=== PATIENT | female | born 1955 | race Asian ===

== ENCOUNTER 2022-04-11 09:02 | Outpatient (REF) | payer MEDICARE, MEDICAID, SELFPAY ==
[2022-04-11 11:13] LABS: Hematocrit 43.2 % (37.0-47.0); Hemoglobin 14.6 g/dl (12.0-16.0); Mean Corpuscular HGB Conc 33.8 g/dl (31.0-35.0); Mean Corpuscular Hemoglobin 30.6 pg (27.0-33.0); Mean Corpuscular Volume 90.6 fL (80.0-98.0); Mean Platelet Volume 10.4 fL (9.4-12.3); Platelet Count 208 X10*3/uL (160-400); Red Blood Count 4.77 X10*6/uL (4.20-5.50); Red Cell Distribution Width 12.8 % (11.0-16.0); White Blood Count 6.6 X10*3/uL (4.8-10.8)
[2022-04-11 11:41] LABS: Alanine Aminotransferase 26 U/L (0-31); Albumin Level 4.3 g/dL (3.5-5.0); Alkaline Phosphatase 57 U/L (39-117); Anion Gap 16 (12-20); Aspartate Amino Transferase 25 U/L (5-31); Bilirubin Total 0.6 mg/dL (0.0-1.0); Blood Urea Nitrogen 14 mg/dL (9-16); Calcium 9.3 mg/dL (8.4-10.2); Carbon Dioxide 26 mmol/L (22-29); Chloride 104 mmol/L (96-108); Cholesterol 168 mg/dL; Estimated Glomerular Filt Rate > 60; Glucose Fasting 95 mg/dL (60-99); HDL Cholesterol 45 mg/dL; LDL Cholesterol Calculated 88 mg/dl; Potassium 4.7 mmol/L (3.3-5.1); Sodium 141 mmol/L (135-145); Total Protein 7.4 g/dL (6.5-8.0); Triglycerides 175 mg/dL
[2022-04-11 12:03] LABS: TSH reflex Free T4 3.63 uIU/mL (0.32-4.0)
== END 2022-04-11 09:03 | disposition home or self-care (01) ==
LOC: HO.WFDLDS 09:02
PROVIDERS: Visit Provider Hospitalist
DX: Z00.00 Encounter for general adult medical examination without abnormal findings (principal)
CPT/HCPCS: 36415; 80053; 80061; 84443; 85027

== ENCOUNTER 2022-11-19 09:51 | Outpatient (REF) | payer MEDICARE, MEDICAID, SELFPAY ==
[2022-11-19 12:39] LABS: TSH reflex Free T4 2.85 uIU/mL (0.32-4.0)
== END 2022-11-19 09:52 | disposition home or self-care (01) ==
LOC: HO.WFDLDS 09:51
PROVIDERS: Visit Provider Hospitalist
DX: E03.9 Hypothyroidism, unspecified (principal)
CPT/HCPCS: 36415; 84443

== ENCOUNTER 2023-02-21 11:15 | Outpatient (REF) | payer MEDICARE, MEDICAID, SELFPAY ==
--- NOTE | ~2023-02-21 | XR_ITS ---
EXAMINATION: XR HAND, LEFT XR KNEE, RIGHT XR KNEE, LEFT CLINICAL INFORMATION: Bilateral knee pain, trouble walking, pain left thumb. COMPARISON: None available. TECHNIQUE: 3 views of the left hand, 2 views of the right knee, 2 views of the left knee. FINDINGS: Right Knee: Trace joint effusion. Mild medial joint space narrowing. Small medial marginal and posterior patellar osteophytes. Left Knee: Trace joint effusion. Mild medial joint space narrowing. Small medial marginal and posterior patellar osteophytes. Left Hand: Moderate degenerative changes 1st carpometacarpal joint with joint space narrowing and hypertrophic change. XR/XR hand LT 2V IMPRESSION: 1. Mild degenerative changes right knee. 2. Mild degenerative changes left knee. 3. Moderate degenerative changes left 1st carpometacarpal joint. Recommend followup imaging in 10-14 days if fracture is suspected. Additional imaging with CT scan or MRI should be considered for better visualization as these modalities are much more sensitive for detection of fracture or other underlying pathology.
--- NOTE | ~2023-02-21 | XR_ITS ---
EXAMINATION: XR HAND, LEFT XR KNEE, RIGHT XR KNEE, LEFT CLINICAL INFORMATION: Bilateral knee pain, trouble walking, pain left thumb. COMPARISON: None available. TECHNIQUE: 3 views of the left hand, 2 views of the right knee, 2 views of the left knee. FINDINGS: Right Knee: Trace joint effusion. Mild medial joint space narrowing. Small medial marginal and posterior patellar osteophytes. Left Knee: Trace joint effusion. Mild medial joint space narrowing. Small medial marginal and posterior patellar osteophytes. Left Hand: Moderate degenerative changes 1st carpometacarpal joint with joint space narrowing and hypertrophic change. XR/XR knee RT 2V IMPRESSION: 1. Mild degenerative changes right knee. 2. Mild degenerative changes left knee. 3. Moderate degenerative changes left 1st carpometacarpal joint. Recommend followup imaging in 10-14 days if fracture is suspected. Additional imaging with CT scan or MRI should be considered for better visualization as these modalities are much more sensitive for detection of fracture or other underlying pathology.
--- NOTE | ~2023-02-21 | XR_ITS ---
EXAMINATION: XR HAND, LEFT XR KNEE, RIGHT XR KNEE, LEFT CLINICAL INFORMATION: Bilateral knee pain, trouble walking, pain left thumb. COMPARISON: None available. TECHNIQUE: 3 views of the left hand, 2 views of the right knee, 2 views of the left knee. FINDINGS: Right Knee: Trace joint effusion. Mild medial joint space narrowing. Small medial marginal and posterior patellar osteophytes. Left Knee: Trace joint effusion. Mild medial joint space narrowing. Small medial marginal and posterior patellar osteophytes. Left Hand: Moderate degenerative changes 1st carpometacarpal joint with joint space narrowing and hypertrophic change. XR/XR knee LT 2V IMPRESSION: 1. Mild degenerative changes right knee. 2. Mild degenerative changes left knee. 3. Moderate degenerative changes left 1st carpometacarpal joint. Recommend followup imaging in 10-14 days if fracture is suspected. Additional imaging with CT scan or MRI should be considered for better visualization as these modalities are much more sensitive for detection of fracture or other underlying pathology.
[2023-02-21 11:29] LABS: MANUAL DIFF FLAG NO
[2023-02-21 12:15] LABS: Basophils Percent Auto 0.7 % (0-2); Eosinophils Absolute Auto 0.2 X10*3/uL (0.0-0.4); Eosinophils Percent Auto 2.5 % (0-4); Hematocrit 42.1 % (37.0-47.0); Hemoglobin 14.2 g/dl (12.0-16.0); Imm Gran Abs Auto 0.02 X10*3/uL (0.00-0.03); Imm Gran Pct Auto 0.3 % (0.0-0.4); Lymphocytes Absolute Auto 2.5 X10*3/uL (1.2-4.9); Lymphocytes Percent Auto 42.2 % (20-40); Mean Corpuscular HGB Conc 33.7 g/dl (31.0-35.0); Mean Corpuscular Hemoglobin 30.9 pg (27.0-33.0); Mean Corpuscular Volume 91.5 fL (80.0-98.0); Mean Platelet Volume 10.6 fL (9.4-12.3); Monocytes Absolute Auto 0.5 X10*3/uL (0.1-1.2); Monocytes Percent Auto 7.7 % (2-11); Neutrophils Absolute Auto 2.8 x10*3/uL (2.0-8.3); Neutrophils Percent Auto 46.6 % (45-73); Platelet Count 194 X10*3/uL (160-400); Red Cell Distribution Width 12.8 % (11.0-16.0)
[2023-02-21 13:22] LABS: Alanine Aminotransferase 29 U/L (0-31); Alkaline Phosphatase 53 U/L (39-117); Anion Gap 10 (12-20); Aspartate Amino Transferase 23 U/L (5-31); Bilirubin Total 0.9 mg/dL (0.0-1.0); Blood Urea Nitrogen 17 mg/dL (9-16); Calcium 9.4 mg/dL (8.4-10.2); Carbon Dioxide 27 mmol/L (22-29); Chloride 106 mmol/L (96-108); Estimated Glomerular Filt Rate > 60; Glucose Fasting 92 mg/dL (60-99); Magnesium 1.9 mg/dL (1.6-2.6); Sodium 139 mmol/L (135-145); Total Protein 7.3 g/dL (6.5-8.0)
[2023-02-21 13:38] LABS: TSH reflex Free T4 1.48 uIU/mL (0.32-4.0)
== END 2023-02-21 11:16 | disposition home or self-care (01) ==
LOC: HO.XRAY 11:15
PROVIDERS: Visit Provider Nurse Practitioner Family
DX: E03.9 Hypothyroidism, unspecified (principal); G89.29 Other chronic pain; M25.561 Pain in right knee; M25.562 Pain in left knee; M79.642 Pain in left hand; E55.9 Vitamin D deficiency, unspecified; Z79.899 Other long term (current) drug therapy
CPT/HCPCS: 36415; 73120; 73560; 80053; 82306; 83735; 84443; 85025

== ENCOUNTER 2023-04-25 10:34 | Outpatient (AMB) | payer MEDICARE, MEDICAID, SELFPAY ==
[2023-04-25 10:42] VITALS: BP 128/70; PULSE 79; RESP 12; TEMP 36.8; O2SAT 98; BMI 32.1
--- NOTE | 2023-04-25 10:42 | A.OFFPC_ITS ---
Vital Signs 04/25/23 10:42 Height 5 ft 6 in Weight 199 lb BMI 32.1 BP 128/70 Blood Pressure Location Lt brachial Position Sitting Respiration 12 Pulse 79 Pulse Source Pulse Oximeter Temp 98.3 F Temp Source Temporal Artery Scan Pulse Oximetry (%) 98 Oxygen Delivery Method Room Air Intake Visit Reasons: CPE Intake Note: Patient's daughter states that her mother has been stating she wants to harm herself and states that she would rather be . Patient believes its due to patient uable to do thing for herself and needing assistance with day to day activities. Patient's daughter states that patients toe tips and feet are either ice cold or hotter than usual. Patient's daughter is worried that her mother is emotionally stuck and starting to give up on herself. Staff Development Coordinator Rn Required: Yes Staff Development Coordinator Rn Name: Agustin (daughter/caregiver) Accompanied by: Daughter Allergies amoxicillin Allergy (Severe, Verified 04/25/23 11:03) Anaphylaxis Medication List - Last Reconciled 04/25/23 by Sera Fox CNP acetaminophen ER 650 mg PO Q8H PRN atorvastatin 20 mg PO DAILY 90 days celecoxib (Celebrex) 100 mg PO BID PRN 30 days cholecalciferol (vitamin D3) 50 mcg PO DAILY cyanocobalamin (vitamin B-12) 100 mcg PO DAILY diclofenac sodium 1% (Arthritis Pain (diclofenac)) 2 grams topical BID escitalopram oxalate 20 mg PO DAILY famotidine 40 mg PO DAILY gabapentin 600 mg PO TID hydroxyzine pamoate 25 mg PO BEDTIME levothyroxine 125 mcg PO DAILY 3 months simethicone (Gas Relief (simethicone)) 125 mg PO TID PRN trazodone 100 mg PO BID 30 days Tobacco use date assessed: 10/31/22 Fall risk assessment: 2 + Falls in past year Last assessed Fall Risk: 04/25/23 Dental Screening Dental Screen Date: 04/25/23 Did you have a dental visit in the last 12 months?: Yes Did you have a dental problem in the last 6 months where you did not have access to dental care?: No Was dental information given to patient?: Patient has dentist HPI HPI Comments History of Present Illness Details 68-year-old Slovenian Speaking female, accompanied by her daughter, presents for complete physical exam. She reports generalized pain to her spine, left hand, in bilateral lower extremity. Recent x-ray of the knees and left hand revealed degenerative changes. She had a positive response to the pHQ-9 question regarding ? Thoughts that you would be better off or of hurting yourself in some way. She declines to elaborate on the reasons she feels this way. She notes that she sometimes refused to take her medications or eat so that she does not live much longer. Her daughter states that the patient has an appointment to establish with a psychiatrist in June 2023. She is not followed by a therapist and declines a referral. She arrives and left in a wheelchair. [facility] Medical History Depression Surgical History History of thyroidectomy Social History Household Members Other:: daughter Housing: House Alcohol intake: never Patient Tobacco Use Status: Never used Tobacco e-Cigarette/Vaping Use: Never Used Second Hand Smoke Exposure: No service: No Current occupational status: disabled Current occupational exposures/hazards: No Cognitive needs: Yes (cane, wheelchair) Hearing needs: No Vision needs: No (glasses) Questionnaire PHQ-9 Over the last 2 weeks, how often have you been bothered by any of the following problems? 1. Little interest or pleasure in doing things: several days 2. Feeling down, depressed, or hopeless: nearly every day 3. Trouble falling or staying asleep, or sleeping too much: not at all 4. Feeling tired or having little energy: nearly every day 5. Poor appetite or overeating: nearly every day 6. Feeling bad about yourself - or that you are a failure or have let yourself or your family down: nearly every day 7. Trouble concentrating on things, such as reading the newspaper or watching television: several days 8. Moving or speaking so slowly that other people could have noticed. Or the opposite - being so fidgety or restless that you have been moving around a lot more than usual: several days 9. Thoughts that you would be better off or of hurting yourself in some way: nearly every day Total score: 18 Depression Screening Interpretation: Positive Source: Developed by Jolynn GarciaW. Gabino, Ludwin Moreno and colleagues, with an educational hima from [employer]. Thrive Questionnaire Date Thrive assessed: 10/31/22 FORREST-7 AMB Questionnaire FORREST-7 Date FORREST - 7 assessed: 04/25/23 Feeling nervous, anxious, or on edge: 3 = Nearly every day Not being able to stop or control worryin = Nearly every day Worrying too much about different things: 3 = Nearly every day Trouble relaxin = Not at all Being so restless that it is hard to sit still: 3 = Nearly every day Becoming easily annoyed or irritable: 0 = Not at all Feeling afraid as if something awful might happen: 3 = Nearly every day Total FORREST-7 score (0-4 normal; 5-9 mild; 10-14 moderate; 15-21 severe): 15 Source: Developed by Drs. Jhon Abreu, Jolynn Lloyd, Ludwin Moreno and colleagues, with an educational hima from [employer]. Review of Systems Const Details: Denies chills, Denies fatigue, Denies fever(s), Denies headache(s) and Denies weakness HEENT Denies change in vision, Denies dizziness, Denies headache(s), Denies hearing loss, Denies nasal congestion, Denies sinus pain, Denies sinus pressure and Denies sore throat Card Denies chest pain, Denies lightheadedness, Denies dyspnea and Denies other (palpitations) Resp Denies cough, Denies dyspnea and Denies wheezing GI Denies abdominal pain, Denies melena, Denies hematochezia, Denies change in bowel habits, Denies dyspepsia and Denies nausea Denies hematuria and Denies dysuria Musc Reports abnormal gait, Reports myalgias, Reports arthralgias, Denies numbness and Denies tingling Skin/Breast Denies rash, Denies unusual bruising and Denies wounds Neuro Denies abnormal gait, Denies dizziness, Denies headache(s), Denies memory loss, Denies numbness, Denies Sensory deficit (Neuro), Denies tingling and Denies weakness Psych Reports anxiety, Reports depression and Denies memory loss Endo Reports cold intolerance, Denies fatigue, Denies heat intolerance, Denies polydipsia and Denies polyuria David/Lymph Denies easy bleeding and Denies easy bruising Aller/Immun Denies wheezing Physical exam (Primary Care) Vital Signs: Last Vital Signs Temp 98.3 F 04/25/23 10:42 Pulse 79 04/25/23 10:42 Resp 12 04/25/23 10:42 BP 128/70 04/25/23 10:42 Pulse Ox 98 04/25/23 10:42 Oxygen Delivery Method Room Air 04/25/23 10:42 BMI result Body Mass Index 32.1 Tobacco/Smoking Status: Tobacco use Status Tobacco use date assessed 10/31/22 04/25/23 10:55 Patient Tobacco Use Status Never used Tobacco 04/25/23 10:55 e-Cigarette/Vaping Use Never Used 04/25/23 10:55 PHQ-9: PHQ-9 Score PHQ-9: Total score 18 04/25/23 11:40 Depression Screening Interpretation: Positive Thrive Assessment: Date of Thrive Assessment Date Thrive assessed 10/31/22 04/25/23 10:55 Const Other: General: no acute distress, well developed, alert and awake Nutritional Appearance: well nourished Orientation/consciousness: patient oriented x3 HENMT Head: Yes normocephalic and Yes atraumatic Ears: hearing grossly normal bilaterally and TM's normal bilaterally General nose exam: Normal external nose present and Normal nares present Mouth: Normal oral and palatal mucosa present and moist mucous membranes Teeth and gingiva: dentition normal Throat: Yes oropharynx normal Eyes Pupils: Equal, round and reactive pupils present and Pupil accommodation reflex normal EOM: EOMs intact bilaterally Neck Neck: Yes normal visual inspection, Yes no lymphadenopathy and Yes trachea midline Thyroid: Thyroid normal Carotids: no bruits Lymphatic: no lymphadenopathy noted Chest Chest palpation & inspection: normal inspection of the chest Resp Effort & Inspection: normal respiratory effort Auscultation: clear to auscultation bilaterally Cardio Rate: regular rate Rhythm: regular rhythm Heart sounds: S1 normal heart sound present, S2 normal heart sound present, no gallops, no murmurs and no rubs Bruits: no abdominal aortic bruits and no carotid bruits GI Palpation (GI): No Abdominal aortic bruit present, Soft to palpation, nontender, No hepatosplenomegaly present and No Rebound tenderness present Auscultation: normal bowel sounds General: Yes no CVA tenderness Back/Spine/Pelvis Back: no CVA tenderness Cervical Spine: cervical ROM normal and Cervical spine tenderness Thoracic/Lumbar Spine: thoraco-lumbar ROM normal, No pain with thoraco-lumbar ROM, and thoracic spinal and lumbar spinal tenderness Skin General: warm and dry. Normal skin color. Normal skin turgor Lesions: no lesions Rashes: no rashes Trauma: no lacerations or abrasions Wounds: no wounds Nails: normal Neuro General: patient oriented x3, unsteady gait and CN's II-XI intact bilaterally Cranial nerves: Yes Equal, round and reactive pupils present Cognition (Neuro): normal cognition Gait exam (Neuro): Unsteady gait present Motor exam (neuro): 3/5 motor strength present throughout Sensory Exam: No Sensory deficit (Neuro) Deep tendon reflexes (DTR's): Right patellar reflex intensity grade: 2+ and Left patellar reflex intensity grade: 2+ Extrem General: Yes normal to inspection, No edema and No calf tenderness Psych Appearance: grossly normal Affect: normal affect Attitude: cooperative Thought process: Normal thought process present Assessment and Plan Assessment & Plan (1) Physical exam, annual: Code(s): Z00.00 - Encounter for general adult medical examination without abnormal findings Plan: Significant physical restrictions limitations noted Gait is significantly unsteady, unable to ambulate without 2 person assistance Previous lab results reviewed; unremarkable. Will check lipids Advised to fast for at least 10-12 hours and get blood work done before next visit Follow-up in 4 weeks Verbalized understanding and agreed with treatment plan. (2) Anxiety and depression: Code(s): F41.9 - Anxiety disorder, unspecified; F32.A - Depression, unspecified Plan: PHQ-9 and FORREST-7 scores revealed moderate chills severe depression and severe anxiety respectively Escitalopram is discontinued Duloxetine ordered. Take as prescribed Continue to take hydroxyzine and trazodone as prescribed Declined talked therapy Advised to establish with psychiatrist as planned Referred to the nurse navigator to assist with coordinating care Follow-up in 4 weeks or return sooner with worsening or new symptoms Verbalized understanding and agreed with treatment plan. (3) Chronic generalized pain: Code(s): R52 - Pain, unspecified; G89.29 - Other chronic pain Plan: Reports generalized pain to her spine, left hand, in bilateral lower extremity. Recent x-ray of the knees and left hand revealed degenerative changes Tylenol, Celebrex, gabapentin, and diclofenac cream as prescribed Warm/cool compresses encouraged Referred to home care for mood assessment, med administration, and physical therapy Follow-up with worsening or new symptoms Verbalized understanding and agreed with treatment plan. Orders: Orders Lipid Panel Today E78.1 - Pure hyperglyceridemia Referrals [facility] Referral F32.A - Depression, unspecified, F41.9 - Anxiety disorder, unspecified, G89.29 - Other chronic pain, R52 - Pain, unspecified Nurse Navigator Referral F32.A - Depression, unspecified, F41.9 - Anxiety disorder, unspecified, G89.29 - Other chronic pain, R52 - Pain, unspecified Medications: New duloxetine 20 mg PO BID 30 days 60 caps 3RF Changed From cholecalciferol (vitamin D3) 50 mcg PO DAILY To cholecalciferol (vitamin D3) 50 mcg PO DAILY 90 days 90 caps 1RF Discontinued escitalopram oxalate Discontinued Reason: Doctor's Order 20 mg PO DAILY 90 tabs 1RF F34.1 - Dysthymic disorder Coding Level of Care Code Est Pt Prev Care >65y(40554) Diagnoses Physical exam, annual Z00.00 Anxiety and depression F41.9; F32.A Chronic generalized pain R52; G89.29
== END 2023-04-25 11:44 | disposition home or self-care (01) ==
PROVIDERS: PCP Hospitalist; Visit Provider Nurse Practitioner Family
DX: Z00.00 Encounter for general adult medical examination without abnormal findings (principal); F41.9 Anxiety disorder, unspecified; F32.A Depression, unspecified; R52 Pain, unspecified; G89.29 Other chronic pain
CPT/HCPCS: 99397

== ENCOUNTER 2023-07-21 11:05 | Outpatient (AMB) | payer MEDICARE, MEDICAID, SELFPAY ==
--- NOTE | 2023-07-21 11:14 | MHC.PC.OV ---
Vital Signs 07/21/23 11:15 Height 5 ft 6 in Weight 215 lb BMI 34.7 BP 132/78 Blood Pressure Location Rt brachial Position Sitting Respiration 13 Pulse 68 Pulse Source Pulse Oximeter Pulse Oximetry (%) 97 Oxygen Delivery Method Room Air Intake Visit Reasons: Transfer of care - anxiety/depression Intake Note: Patient is here for a transfer of care from [facility] and a follow up for anxiety and depression. Patient's daughter is concerned about for her weight gain. Patient needs a refill on Simethicone 125mg TID, acetaminophen 650mg Q8H, and Vitamin B12 100mcg QD. Utilization Management Nurse Required: No Accompanied by: Daughter Allergies amoxicillin Allergy (Severe, Verified 07/21/23 11:37) Anaphylaxis Medication List - Last Reconciled 07/21/23 by Sera Fox CNP acetaminophen ER 650 mg PO Q8H PRN atorvastatin 20 mg PO DAILY 90 days celecoxib (Celebrex) 100 mg PO BID PRN 30 days cholecalciferol (vitamin D3) 50 mcg PO DAILY 90 days cyanocobalamin (vitamin B-12) 100 mcg PO DAILY diclofenac sodium 1% (Arthritis Pain (diclofenac)) 2 grams topical BID duloxetine 20 mg PO BID 30 days famotidine 40 mg PO DAILY gabapentin 600 mg PO TID hydroxyzine pamoate 25 mg PO BEDTIME levothyroxine 125 mcg PO DAILY 3 months simethicone (Gas Relief (simethicone)) 125 mg PO TID PRN trazodone 100 mg PO BID 30 days Tobacco use date assessed: 07/21/23 Fall risk assessment: No Falls in past year Last assessed Fall Risk: 07/21/23 HPI HPI Comments History of Present Illness Details 68-year-old Vietnamese Speaking female, accompanied by her daughter, presents for transfer of care Her former PCP is [facility] was is no longer with the practice She has past medical history significant for hyperlipidemia, hypothyroidism, chronic generalized pain, obesity, vitamin-D deficiency, anxiety, and depression. She admits to taking her medications as prescribed without adverse reactions She notes that she is followed by a psychiatrist every 3 months. Her next appointment is in September, She notes that the patient's mood have improved since her sons are currently visiting from [place] She was referred to home care for mood assessment, medication administration, and physical therapy. However, her daughter notes that she he is fully capable of providing care for her mother and has been doing so. According to her daughter, the patient declined home care services. Her daughter is concerned about the patient's weight gain. She gained 16 lb since the last visit. She notes that the patient has been eating healthy. Her daughter attributes the patient's weight gain to sedentary lifestyle. She notes that the patietn ambulates with a cane and walker for short distances and mostly sits in a wheelchair which she uses for long distances. The patient's daughter requests mounjaro for weight loss for the patient which she notes she will pay out of pocket if the patient's health plan does not cover the medication. Her daughter states that several weight loss regimen, including diet and physical therapy has failed. She denies history of pancreatitis or a personal or family history of medullary thyroid cancer or multiple endorcine neoplasia She requests refill of Tylenol which she notes is more effective in managing the patient's pain than Celebrex Patient was escorted in a wheelchair, by her daughter, in and out of the exam room [facility] Medical History Depression Surgical History History of thyroidectomy Social History Household Members Other:: daughter Housing: House Alcohol intake: never Patient Tobacco Use Status: Never used Tobacco e-Cigarette/Vaping Use: Never Used Second Hand Smoke Exposure: No service: No Current occupational status: disabled Current occupational exposures/hazards: No Cognitive needs: Yes (cane, wheelchair) Hearing needs: No Vision needs: No (glasses) Questionnaire PHQ-9 Over the last 2 weeks, how often have you been bothered by any of the following problems? 1. Little interest or pleasure in doing things: not at all 2. Feeling down, depressed, or hopeless: more than half the days 3. Trouble falling or staying asleep, or sleeping too much: not at all 4. Feeling tired or having little energy: nearly every day 5. Poor appetite or overeating: not at all 6. Feeling bad about yourself - or that you are a failure or have let yourself or your family down: nearly every day 7. Trouble concentrating on things, such as reading the newspaper or watching television: nearly every day 8. Moving or speaking so slowly that other people could have noticed. Or the opposite - being so fidgety or restless that you have been moving around a lot more than usual: several days 9. Thoughts that you would be better off or of hurting yourself in some way: not at all Total score: 12 Depression Screening Interpretation: Positive Depression Screening Follow-up: Existing condition and In treatment Depression Screening Done: Yes 28491 - PHQ-9 Billing: Yes Source: Developed by Drs. Jhon Abreu, Jolynn Lloyd, Ludwin Moreno and colleagues, with an educational hima from [employer]. Thrive Questionnaire Date Thrive assessed: 10/31/22 FORREST-7 AMB Questionnaire FORREST-7 Date FORREST - 7 assessed: 07/21/23 Feeling nervous, anxious, or on edge: 1 = Several days Not being able to stop or control worryin = Nearly every day Worrying too much about different things: 1 = Several days Trouble relaxin = Nearly every day Being so restless that it is hard to sit still: 1 = Several days Becoming easily annoyed or irritable: 1 = Several days Feeling afraid as if something awful might happen: 3 = Nearly every day Total FORREST-7 score (0-4 normal; 5-9 mild; 10-14 moderate; 15-21 severe): 13 Source: Developed by Drs. Jhon Abreu, Jolynn Lloyd, Ludwin Moreno and colleagues, with an educational hima from [employer]. FORREST-7 Assessment Billing FORREST-7 Assessment Tool: FORREST-7 Assessment [id number] Review of Systems Const Details: Const Denies chills, Denies fatigue, Denies fever(s), Denies headache(s) and Denies weakness ENT Denies dizziness and Denies headache(s) Card Denies chest pain, Denies lightheadedness, Denies dyspnea and Denies other (Palpitations) Resp Denies cough, Denies dyspnea, Denies wheezing and Denies other ( shortness of breath) GI Denies abdominal pain, Denies melena, Denies hematochezia, Denies change in bowel habits, Denies dyspepsia and Denies nausea Denies hematuria and Denies dysuria Musc Denies abnormal gait, Denies myalgias, Denies arthralgias, Denies numbness and Denies tingling Skin/Breast Denies rash, Denies unusual bruising and Denies wounds Neuro Denies abnormal gait, Denies dizziness, Denies headache(s), Denies memory loss, Denies numbness, Denies Sensory deficit (Neuro), Denies tingling and Denies weakness Psych Reports anxiety, Reports depression, Denies memory loss Endo Denies cold intolerance, Denies fatigue, Denies heat intolerance, Denies polydipsia and Denies polyuria Aller/Immun Denies wheezing Physical exam (Primary Care) Vital Signs: Last Vital Signs Pulse 68 07/21/23 11:15 Resp 13 07/21/23 11:15 BP 132/78 07/21/23 11:15 Pulse Ox 97 07/21/23 11:15 Oxygen Delivery Method Room Air 07/21/23 11:15 BMI result Body Mass Index 34.7 Tobacco/Smoking Status: Tobacco use Status Tobacco use date assessed 07/21/23 07/21/23 11:29 Patient Tobacco Use Status Never used Tobacco 07/21/23 11:29 e-Cigarette/Vaping Use Never Used 07/21/23 11:29 PHQ-9: PHQ-9 Score PHQ-9: Total score 15 07/21/23 11:29 Depression Screening Interpretation: Positive Depression Screening Follow-up: Existing condition and In treatment Thrive Assessment: Date of Thrive Assessment Date Thrive assessed 10/31/22 07/21/23 11:29 Const Other: General: no acute distress and well developed Nutritional Appearance: well nourished Orientation/consciousness: patient oriented x3 HENMT Head: Yes normocephalic and Yes atraumatic Eyes General: appearance normal, both eyes and all related structures Pupils: Equal, round and reactive pupils present EOM: EOMs intact bilaterally Resp Effort & Inspection: normal respiratory effort Auscultation: clear to auscultation bilaterally Cardio Rate: regular rate Rhythm: regular rhythm Heart sounds: S1 normal heart sound present, S2 normal heart sound present, no gallops, no murmurs and no rubs GI Palpation (GI): No Abdominal aortic bruit present, Soft to palpation, nontender, No hepatosplenomegaly present and No Rebound tenderness present Auscultation: normal bowel sounds General: Yes no CVA tenderness Back/Spine/Pelvis Back: no CVA tenderness Cervical Spine: cervical ROM normal and No Cervical spine tenderness Thoracic/Lumbar Spine: thoraco-lumbar ROM normal, No pain with thoraco-lumbar ROM, No thoracic spinal tenderness and No lumbar spinal tenderness Extrem General: Yes normal to inspection, No edema and No calf tenderness Skin General: warm and dry. Normal skin color. Normal skin turgor Neuro General: patient oriented x3 and no focal neuro deficit Cranial nerves: Yes Equal, round and reactive pupils present Cognition (Neuro): normal cognition Gait exam (Neuro): wheelchair Sensory Exam: No Sensory deficit (Neuro) Psych Appearance: grossly normal Affect: normal affect Attitude: cooperative Thought process: Normal thought process present Assessment and Plan Assessment & Plan (1) Anxiety and depression: Code(s): F41.9 - Anxiety disorder, unspecified; F32.A - Depression, unspecified Plan: Reports improved mood since she is spending time with her son who or visiting PHQ-9 and FORREST-7 scores revealed moderate depression and anxiety Continue with current treatment regimen Encouraged to continue to spend more time with her family She may be able to expand her activity more if she loses some weight. Healthy diet encouraged. Mounjaro as prescribed Follow-up with psychiatrist as planned Will continue to monitor Verbalized understanding and agreed with treatment plan. (2) High triglycerides: Code(s): E78.1 - Pure hyperglyceridemia Plan: Triglycerides level was slightly elevated a year ago, 175. Total cholesterol, LDL, and HDL levels were normal Lipid panel was ordered, however, the patient has not gotten blood work done. Advised to get fasting blood work done before her next visit Continue to take atorvastatin as prescribed Advised to limit foods high in saturated fat and avoid foods high in trans fat Follow-up in 1 month Verbalized understanding and agreed with treatment plan. (3) Obesity: Code(s): E66.9 - Obesity, unspecified Plan: The patient's daughter's concerned about the patient's recent weight gain She gained 16 lb since her last visit 3 months ago She currently weighs 215 lb, BMI is 34.7 Her daughter notes that several with management modalities has failed; she requests mounjaro for weight management and would cover cost if health plan does not cover Monitor ordered. Take as prescribed Healthy diet encouraged Follow-up in 1 month or return sooner with symptoms, concerns, or adverse reaction of the medication Verbalized understanding and agreed with treatment plan. Medications: New tirzepatide (Mounjaro) 2.5 mg (0.5 mL) subcut QWEEK 2 mL 0RF 4 weeks acetaminophen ER 650 mg PO Q8H PRN 60 tabs 3RF pain Changed From simethicone (Gas Relief (simethicone)) 125 mg PO TID PRN 90 tabs 3RF abdominal distention R14.1 - Gas pain To simethicone (Gas Relief (simethicone)) 125 mg PO TID 90 days PRN 90 tabs 1RF abdominal distention R14.1 - Gas pain Discontinued celecoxib (Celebrex) Discontinued Reason: Patient no longer taking 100 mg PO BID PRN 60 caps 2RF pain 30 days Coding Level of Care Code Est Pt Level 4 (74445) Diagnoses Anxiety and depression F41.9; F32.A High triglycerides E78.1 Obesity E66.9 Additional Codes FORREST-7 Assessment Billing - FORREST-7 Assessment Tool: FORREST-7 Assessment [id number] ([id number])
[2023-07-21 11:15] VITALS: BP 132/78; PULSE 68; RESP 13; O2SAT 97; BMI 34.7
== END 2023-07-21 12:23 | disposition home or self-care (01) ==
PROVIDERS: PCP Hospitalist; Visit Provider Nurse Practitioner Family
DX: F41.9 Anxiety disorder, unspecified (principal); F32.A Depression, unspecified; E78.1 Pure hyperglyceridemia; E66.9 Obesity, unspecified; Z68.34 Body mass index [BMI] 34.0-34.9, adult
CPT/HCPCS: 96127; 99214

== ENCOUNTER 2023-08-26 10:49 | Outpatient (AMB) | payer MEDICARE, MEDICAID, SELFPAY ==
--- NOTE | 2023-08-26 10:51 | MHC.PC.OV ---
Vital Signs 08/26/23 10:52 Height 5 ft 6 in Weight 225 lb BMI 36.3 BP 130/70 Blood Pressure Location Lt brachial Position Sitting Respiration 16 Pulse 72 Pulse Source Pulse Oximeter Temp 98.3 F Temp Source Oral Pulse Oximetry (%) 94 Intake Visit Reasons: hyper triglyceridemia, weight management Intake Note: Patient is here for hypertriglyceridemia and weight management. Patient's daghter stated that the pharmacy nver got the prescriprtion for Mounjaro. Allergies amoxicillin Allergy (Severe, Verified 08/26/23 11:17) Anaphylaxis Medication List - Last Reconciled 08/26/23 by Sera Fox CNP acetaminophen ER 650 mg PO Q8H PRN atorvastatin 20 mg PO DAILY 90 days cholecalciferol (vitamin D3) 50 mcg PO DAILY 90 days cyanocobalamin (vitamin B-12) 100 mcg PO DAILY diclofenac sodium 1% (Arthritis Pain (diclofenac)) 2 grams topical BID duloxetine 20 mg PO BID 30 days famotidine 40 mg PO DAILY gabapentin 600 mg PO TID hydroxyzine pamoate 25 mg PO BEDTIME levothyroxine 125 mcg PO DAILY 3 months simethicone (Gas Relief (simethicone)) 125 mg PO TID PRN 90 days tirzepatide (Mounjaro) 2.5 mg (0.5 mL) subcut QWEEK 4 weeks trazodone 100 mg PO BID 30 days Tobacco use date assessed: 08/26/23 Fall risk assessment: No Falls in past year Last assessed Fall Risk: 08/26/23 Dental Screening Dental Screen Date: 08/26/23 Did you have a dental visit in the last 12 months?: Yes Did you have a dental problem in the last 6 months where you did not have access to dental care?: No Was dental information given to patient?: Patient has dentist HPI HPI Comments History of Present Illness Details 68-year-old Georgian Speaking female, accompanied by her daughter, presents for hyperlipidemia and weight management follow-up She admits to taking her medications as prescribed Her last office visit was on 07/21/2023. She reported weight gain. It was noted that she gained 16 lb within 3 months Per the patient's daughter, she went to the pharmacy 3 times and was told monunjaro was not available. She notes that the patient has been making healthy dietary choices including low carbs, fruits, and vegetables Her daughter notes that the patient is currently discharged from her psychiatrist because she is Georgian speaking only. She is in the process of connecting her mother with an Georgian speaking psychiatrist. She is trying to schedule an appointment before the end of this week Last mammogram was within the past 2 years at [facility]: Normal She notes she has never had colonoscopy. She declines colonoscopy She states that her last pap smear test was withing the past 2 years: normal She notes that her last dexa scan with withing the past 3 years: normal She is up-to-date on her PNA vaccines [facility] Medical History Depression Surgical History History of thyroidectomy Social History Household Members Other:: daughter Housing: House Alcohol intake: never Patient Tobacco Use Status: Never used Tobacco e-Cigarette/Vaping Use: Never Used Second Hand Smoke Exposure: No service: No Current occupational status: disabled Current occupational exposures/hazards: No Cognitive needs: Yes (cane, wheelchair) Hearing needs: No Vision needs: No (glasses) Questionnaire Thrive Questionnaire Date Thrive assessed: 10/31/22 FORREST-7 AMB Questionnaire FORREST-7 Date FORREST - 7 assessed: 07/21/23 Source: Developed by Drs. Jhon Abreu, Jolynn Lloyd, Ludwin Moreno and colleagues, with an educational hima from [employer]. Review of Systems Const Details: Const Denies chills, Denies fatigue, Denies fever(s), Denies headache(s) and Denies weakness ENT Denies dizziness and Denies headache(s) Card Denies chest pain, Denies lightheadedness, Denies dyspnea and Denies other (Palpitations) Resp Denies cough, Denies dyspnea, Denies wheezing and Denies other ( shortness of breath) GI Denies abdominal pain, Denies melena, Denies hematochezia, Denies change in bowel habits, Denies dyspepsia and Denies nausea Denies hematuria and Denies dysuria Musc Denies abnormal gait, Denies myalgias, Denies arthralgias, Denies numbness and Denies tingling Skin/Breast Denies rash, Denies unusual bruising and Denies wounds Neuro Denies abnormal gait, Denies dizziness, Denies headache(s), Denies memory loss, Denies numbness, Denies Sensory deficit (Neuro), Denies tingling and Denies weakness Psych Denies anxiety, Denies depression, Denies memory loss Endo Denies cold intolerance, Denies fatigue, Denies heat intolerance, Denies polydipsia and Denies polyuria Aller/Immun Denies wheezing Physical exam (Primary Care) BMI result Body Mass Index 36.3 Tobacco/Smoking Status: Tobacco use Status Tobacco use date assessed 07/21/23 08/26/23 11:06 Patient Tobacco Use Status Never used Tobacco 08/26/23 11:06 e-Cigarette/Vaping Use Never Used 08/26/23 11:06 Thrive Assessment: Date of Thrive Assessment Date Thrive assessed 10/31/22 08/26/23 11:06 Const Other: Const Other: General: no acute distress and well developed Nutritional Appearance: well nourished Orientation/consciousness: patient oriented x3 HENMT Head: Yes normocephalic and Yes atraumatic Eyes General: appearance normal, both eyes and all related structures Pupils: Equal, round and reactive pupils present EOM: EOMs intact bilaterally Resp Effort & Inspection: normal respiratory effort Auscultation: clear to auscultation bilaterally Cardio Rate: regular rate Rhythm: regular rhythm Heart sounds: S1 normal heart sound present, S2 normal heart sound present, no gallops, no murmurs and no rubs GI Palpation (GI): No Abdominal aortic bruit present, Soft to palpation, nontender, No hepatosplenomegaly present and No Rebound tenderness present Auscultation: normal bowel sounds General: Yes no CVA tenderness Back/Spine/Pelvis Back: no CVA tenderness Cervical Spine: cervical ROM normal and No Cervical spine tenderness Thoracic/Lumbar Spine: thoraco-lumbar ROM normal, No pain with thoraco-lumbar ROM, No thoracic spinal tenderness and No lumbar spinal tenderness Extrem General: Yes normal to inspection, No edema and No calf tenderness Skin General: warm and dry. Normal skin color. Normal skin turgor Neuro General: patient oriented x3 and no focal neuro deficit Cranial nerves: Yes Equal, round and reactive pupils present Cognition (Neuro): normal cognition Gait exam (Neuro): wheelchair Sensory Exam: No Sensory deficit (Neuro) Psych Appearance: grossly normal Affect: normal affect Attitude: cooperative Thought process: Normal thought process present Assessment and Plan Assessment & Plan (1) BMI 36.0-36.9,adult: Code(s): Z68.36 - Body mass index [BMI] 36.0-36.9, adult Plan: She gained an additional 10 lb since her last visit. Therefore, she has gained 26 lb in the past 4 months Her daughter notes that she was told that the Mounjaro prescription was not available at the pharmacy. However, the nurse called the pharmacy and was notified the prescription was ready but never picked up. Patient informed that the medication is available at the pharmacy for warehouse order picker. She notes she will warehouse order picker medication today. She is advised to administer the medication as prescribed. Referred to nutrition/dietitian Follow-up in 1 month or return sooner with symptoms or concerns Verbalized understanding and agreed with treatment plan Interpretation by the patient's daughter per patient's preference (2) High triglycerides: Code(s): E78.1 - Pure hyperglyceridemia Plan: Her triglycerides level was elevated in April, She had lipid panel blood work done earlier today Will review lab results and make changes as needed Advised to limit foods high in saturated fat and avoid foods high trans fat Verbalized understanding and agreed with treatment plan (3) Breast cancer screening by mammogram: Code(s): Z12.31 - Encounter for screening mammogram for malignant neoplasm of breast Plan: Last mammogram was within the past 2 years at [facility]: Normal Mammogram ordered (4) Colon cancer screening: Code(s): Z12.11 - Encounter for screening for malignant neoplasm of colon Plan: She notes she has never had colonoscopy She declines colonoscopy (5) Age-related osteoporosis without current pathological fracture: Code(s): M81.0 - Age-related osteoporosis without current pathological fracture Plan: She notes that her last dexa scan with withing the past 3 years: normal DEXA scan ordered Orders: Orders XR DEXA axial skeleton Today M81.0 - Age-related osteoporosis without current pathological fracture MM screening mammo BI Today Z12.31 - Encounter for screening mammogram for malignant neoplasm of breast Referrals Nutrition/Dietitian Referral Z68.36 - Body mass index [BMI] 36.0-36.9, adult Coding Level of Care Code Est Pt Level 4 (27011) Diagnoses BMI 36.0-36.9,adult Z68.36 High triglycerides E78.1 Breast cancer screening by mammogram Z12.31 Colon cancer screening Z12.11 Age-related osteoporosis without current pathological fracture M81.0
[2023-08-26 10:52] VITALS: BP 130/70; PULSE 72; RESP 16; TEMP 36.8; O2SAT 94; BMI 36.3
== END 2023-08-26 11:48 | disposition home or self-care (01) ==
PROVIDERS: PCP Family Medicine; Visit Provider Nurse Practitioner Family
DX: Z68.36 Body mass index [BMI] 36.0-36.9, adult (principal); E78.1 Pure hyperglyceridemia; Z12.31 Encounter for screening mammogram for malignant neoplasm of breast; Z12.11 Encounter for screening for malignant neoplasm of colon; M81.0 Age-related osteoporosis without current pathological fracture
CPT/HCPCS: 99214

== ENCOUNTER 2023-08-26 10:55 | Outpatient (REF) | payer MEDICARE, MEDICAID, SELFPAY ==
[2023-08-26 14:47] LABS: Cholesterol 137 mg/dL (<200); HDL Cholesterol 39 mg/dL (>40); LDL Cholesterol Calculated 65 mg/dL (<100); Triglycerides 168 mg/dL (<150)
[2023-08-26 15:01] LABS: TSH reflex Free T4 2.15 uIU/mL (0.32-4.0)
== END 2023-08-26 10:56 | disposition home or self-care (01) ==
LOC: HO.WFDLDS 10:55
PROVIDERS: Visit Provider Nurse Practitioner Family
DX: E03.9 Hypothyroidism, unspecified (principal); E78.1 Pure hyperglyceridemia
CPT/HCPCS: 36415; 80061; 84443

== ENCOUNTER 2023-11-24 16:35 | Outpatient (AMB) | payer MEDICARE, MEDICAID, SELFPAY ==
[2023-11-24 16:36] VITALS: BP 118/72; PULSE 75; RESP 13; TEMP 36.1; O2SAT 98; BMI 32.3
--- NOTE | 2023-11-24 16:36 | MHC.PC.OV ---
Vital Signs 11/24/23 16:36 Height 5 ft 6 in Weight 200 lb BMI 32.3 BP 118/72 Blood Pressure Location Rt brachial Position Sitting Respiration 13 Pulse 75 Pulse Source Pulse Oximeter Temp 97 F Temp Source Temporal Artery Scan Pulse Oximetry (%) 98 Oxygen Delivery Method Room Air Intake Visit Reasons: follow up wt mgmt anxiety Bi Consultant Required: Yes Bi Consultant Name: Daughter Accompanied by: Daughter Allergies amoxicillin Allergy (Severe, Verified 11/24/23 16:47) Anaphylaxis Medication List - Last Reconciled 11/24/23 by Sera Fox CNP acetaminophen ER 650 mg PO Q8H PRN atorvastatin 20 mg PO DAILY 90 days cholecalciferol (vitamin D3) 50 mcg PO DAILY 90 days cyanocobalamin (vitamin B-12) 100 mcg PO DAILY diclofenac sodium 1% (Arthritis Pain (diclofenac)) 2 grams topical BID duloxetine 20 mg PO BID 30 days famotidine 40 mg PO DAILY gabapentin 600 mg PO TID hydroxyzine pamoate 25 mg PO BEDTIME levothyroxine 125 mcg PO DAILY 3 months simethicone (Gas Relief (simethicone)) 125 mg PO TID PRN 90 days tirzepatide (Mounjaro) 2.5 mg (0.5 mL) subcut QWEEK 4 weeks trazodone 100 mg PO BID 30 days Tobacco use date assessed: 11/24/23 Fall risk assessment: No Falls in past year Last assessed Fall Risk: 11/24/23 Dental Screening Dental Screen Date: 11/24/23 Did you have a dental visit in the last 12 months?: Yes Did you have a dental problem in the last 6 months where you did not have access to dental care?: No Was dental information given to patient?: Patient has dentist HPI HPI Comments History of Present Illness Details 68-year-old Korean speaking female, accompanied by her daughter, presents for anxiety, depression, and weight management follow-up She admits to taking her medications as prescribed without adverse reactions She lost 25 lb in the past 3 months. Her daughter notes that the was evaluated by with risk management specialist while they visited [facility] in September 2023. She was prescribed Mounjaro 7.5 mg weekly; she took the medication as prescribed for 1 month in October. However, she is currently out of the medication she brought from [place] and unable to afford the cost in the [place] She reports significant improvement of her anxiety and depression symptoms. She notes that she is happy, especially because she is currently fasting and observed of the month of adan She offers no complaints and denies acute symptoms Interpretation by the patient's daughter per patient's preference [facility] Medical History Depression Surgical History H/O eye surgery History of thyroidectomy Social History Household Members Other:: daughter Housing: House Alcohol intake: never Patient Tobacco Use Status: Never used Tobacco e-Cigarette/Vaping Use: Never Used Second Hand Smoke Exposure: No service: No Current occupational status: disabled Current occupational exposures/hazards: No Cognitive needs: No (cane, wheelchair) Hearing needs: No Vision needs: No (glasses) Questionnaire PHQ-9 Over the last 2 weeks, how often have you been bothered by any of the following problems? 1. Little interest or pleasure in doing things: more than half the days 2. Feeling down, depressed, or hopeless: more than half the days 3. Trouble falling or staying asleep, or sleeping too much: more than half the days 4. Feeling tired or having little energy: nearly every day 5. Poor appetite or overeating: more than half the days 6. Feeling bad about yourself - or that you are a failure or have let yourself or your family down: not at all 7. Trouble concentrating on things, such as reading the newspaper or watching television: not at all 8. Moving or speaking so slowly that other people could have noticed. Or the opposite - being so fidgety or restless that you have been moving around a lot more than usual: several days 9. Thoughts that you would be better off or of hurting yourself in some way: not at all Total score: 12 Depression Screening Interpretation: Positive Depression Screening Done: Yes 37117 - PHQ-9 Billing: Yes Source: Developed by Drs. Jhon Abreu, Jolynn Lloyd, Ludwin Moreno and colleagues, with an educational hima from [employer]. Thrive Questionnaire Date Thrive assessed: 10/31/22 FORREST-7 AMB Questionnaire FORREST-7 Date FORREST - 7 assessed: 11/24/23 Feeling nervous, anxious, or on edge: 2 = More than half the days Not being able to stop or control worryin = Nearly every day Worrying too much about different things: 3 = Nearly every day Trouble relaxin = More than half the days Being so restless that it is hard to sit still: 2 = More than half the days Becoming easily annoyed or irritable: 2 = More than half the days Feeling afraid as if something awful might happen: 3 = Nearly every day Total FORREST-7 score (0-4 normal; 5-9 mild; 10-14 moderate; 15-21 severe): 17 Source: Developed by Drs. Jhon Abreu, Jolynn Lloyd, Ludwin Moreno and colleagues, with an educational hima from [employer]. FORREST-7 Assessment Billing FORREST-7 Assessment Tool: FORREST-7 Assessment 31433 Review of Systems Const Details: Const Denies chills, Denies fatigue, Denies fever(s), Denies headache(s) and Denies weakness ENT Denies dizziness and Denies headache(s) Card Denies chest pain, Denies lightheadedness, Denies dyspnea and Denies other (Palpitations) Resp Denies cough, Denies dyspnea, Denies wheezing and Denies other ( shortness of breath) GI Denies abdominal pain, Denies melena, Denies hematochezia, Denies change in bowel habits, Denies dyspepsia and Denies nausea Denies hematuria and Denies dysuria Musc Denies abnormal gait, Denies myalgias, Denies arthralgias, Denies numbness and Denies tingling Skin/Breast Denies rash, Denies unusual bruising and Denies wounds Neuro Denies abnormal gait, Denies dizziness, Denies headache(s), Denies memory loss, Denies numbness, Denies Sensory deficit (Neuro), Denies tingling and Denies weakness Psych Denies anxiety, Denies depression, Denies memory loss Endo Denies cold intolerance, Denies fatigue, Denies heat intolerance, Denies polydipsia and Denies polyuria Aller/Immun Denies wheezing Physical exam (Primary Care) Vital Signs: Last Vital Signs Temp 97 F 11/24/23 16:36 Pulse 75 11/24/23 16:36 Resp 13 11/24/23 16:36 BP 118/72 11/24/23 16:36 Pulse Ox 98 11/24/23 16:36 Oxygen Delivery Method Room Air 11/24/23 16:36 Tobacco/Smoking Status: Tobacco use Status Tobacco use date assessed 11/24/23 11/24/23 16:46 Patient Tobacco Use Status Never used Tobacco 11/24/23 16:46 e-Cigarette/Vaping Use Never Used 11/24/23 16:46 PHQ-9: PHQ-9 Score PHQ-9: Total score 12 11/24/23 16:46 Depression Screening Interpretation: Positive Thrive Assessment: Date of Thrive Assessment Date Thrive assessed 10/31/22 11/24/23 16:46 Const Other: General: no acute distress and well developed Nutritional Appearance: well nourished Orientation/consciousness: patient oriented x3 HENMT Head: Yes normocephalic and Yes atraumatic Eyes General: appearance normal, both eyes and all related structures Pupils: Equal, round and reactive pupils present EOM: EOMs intact bilaterally Resp Effort & Inspection: normal respiratory effort Auscultation: clear to auscultation bilaterally Cardio Rate: regular rate Rhythm: regular rhythm Heart sounds: S1 normal heart sound present, S2 normal heart sound present, no gallops, no murmurs and no rubs GI Palpation (GI): No Abdominal aortic bruit present, Soft to palpation, nontender, No hepatosplenomegaly present and No Rebound tenderness present Auscultation: normal bowel sounds General: Yes no CVA tenderness Back/Spine/Pelvis Back: no CVA tenderness Cervical Spine: cervical ROM normal and No Cervical spine tenderness Thoracic/Lumbar Spine: thoraco-lumbar ROM normal, No pain with thoraco-lumbar ROM, No thoracic spinal tenderness and No lumbar spinal tenderness Extrem General: Yes normal to inspection, No edema and No calf tenderness Skin General: warm and dry. Normal skin color. Normal skin turgor Neuro General: patient oriented x3, unsteady gait and no focal neuro deficit Cranial nerves: Yes Equal, round and reactive pupils present Cognition (Neuro): normal cognition Gait exam (Neuro): Unsteady gait Sensory Exam: No Sensory deficit (Neuro) Psych Appearance: grossly normal Affect: normal affect Attitude: cooperative Thought process: Normal thought process present Assessment and Plan Assessment & Plan (1) Anxiety and depression: Code(s): F41.9 - Anxiety disorder, unspecified; F32.A - Depression, unspecified Plan: Reports improved anxiety depression symptoms PHQ-9 and FORREST-7 scores revealed moderate depression and severe anxiety respectively Continue current treatment regimen Routine exercise encouraged Follow-up in 3 months for anxiety, depression, elevated triglyceride, and hypothyroidism Encouraged to get fasting blood work done before her next visit Return sooner with worsening or new symptoms Verbalized understanding and agreed with treatment plan (2) Obesity: Code(s): E66.9 - Obesity, unspecified Plan: She currently weighs 200 lb, BMI is 32.3 She lost 25 lb since her last visit 3 months ago following treatment with Mounjaro she was prescribed and purchased in [place]. She is currently out of the medication and cannot afford it [place] Her daughter notes that she will bring information to the office for the medication to be covered by [employer] Healthy diet and routine exercise encouraged Follow-up with symptoms or concerns Verbalized understanding and agreed with treatment plan Orders: Orders Lipid Panel Today E78.1 - Pure hyperglyceridemia TSH reflex Free T4 Today E03.9 - Hypothyroidism, unspecified Coding Level of Care Code Est Pt Level 4 (28018) Diagnoses Anxiety and depression F41.9; F32.A Obesity E66.9 Additional Codes FORREST-7 Assessment Billing - FORREST-7 Assessment Tool: FORREST-7 Assessment 38444 ([id number])
== END 2023-11-24 17:18 | disposition home or self-care (01) ==
PROVIDERS: PCP Nurse Practitioner Family; Visit Provider Nurse Practitioner Family
DX: F41.9 Anxiety disorder, unspecified (principal); F32.A Depression, unspecified; E66.9 Obesity, unspecified; Z68.32 Body mass index [BMI] 32.0-32.9, adult
CPT/HCPCS: 99214

== ENCOUNTER 2024-01-15 15:17 | Outpatient (AMB) | payer MEDICARE, MEDICAID, SELFPAY ==
--- NOTE | 2024-01-15 15:34 | MHC.PC.OV ---
Vital Signs 01/15/24 15:47 Height 5 ft 6 in Weight 199 lb BMI 32.1 BP 110/68 Blood Pressure Location Rt brachial Position Sitting Respiration 14 Pulse 67 Pulse Source Pulse Oximeter Temp 98.2 F Temp Source Oral Pulse Oximetry (%) 95 Oxygen Delivery Method Room Air Intake Visit Reasons: Trouble closing eyes Intake Note: Trouble closing eyes. Taking amoxicillin, daughter unsure of dose. Acid Correction Hand Required: Yes Allergies amoxicillin Allergy (Severe, Verified 01/15/24 15:35) Anaphylaxis Medication List - Last Reconciled 01/15/24 by Melyssa Whelan PA-C acetaminophen ER 650 mg PO Q8H PRN atorvastatin 20 mg PO DAILY 90 days cholecalciferol (vitamin D3) 50 mcg PO DAILY 90 days cyanocobalamin (vitamin B-12) 100 mcg PO DAILY diclofenac sodium 1% (Arthritis Pain (diclofenac)) 2 grams topical BID duloxetine 20 mg PO BID 30 days famotidine 40 mg PO DAILY gabapentin 600 mg PO TID hydroxyzine pamoate 25 mg PO BEDTIME levothyroxine 125 mcg PO DAILY 3 months simethicone (Gas Relief (simethicone)) 125 mg PO TID PRN 90 days tirzepatide (Mounjaro) 2.5 mg (0.5 mL) subcut QWEEK 4 weeks trazodone 100 mg PO BID 30 days Tobacco use date assessed: 11/24/23 Dental Screening Dental Screen Date: 11/24/23 HPI Trouble closing eyes HPI Details Patient is a 68-year-old female with a significant past medical history of obesity, anxiety, depression, chronic pain and hypothyroidism presenting today with ?eye problems ?. She is accompanied today by her daughter helps with translation as patient is mostly Nepali speaking. She states that for the last week her mother has had the skin on her upper and lower eyelids inflamed, itchy, and bumpy. No drainage from the eyes. She denies any vision changes. No sinus pain or pressure. No fevers or chills. She does believe that she is developing seasonal allergies. She traveled to [place] 2 months ago and came back last month and states that she has been sneezing and it did get worse over the last week with the increased pollen. She denies putting on any new cosmetics, using any new soaps or lotions. No new medications.. PFSH Medical History (Updated 01/15/24 @ 16:10 by Melyssa Whelan PA-C) Depression Surgical History H/O eye surgery History of thyroidectomy Social History Household Members Other:: daughter Housing: House Alcohol intake: never Patient Tobacco Use Status: Never used Tobacco e-Cigarette/Vaping Use: Never Used Second Hand Smoke Exposure: No service: No Current occupational status: disabled Current occupational exposures/hazards: No Cognitive needs: No (cane, wheelchair) Hearing needs: No Vision needs: No (glasses) Questionnaire Thrive Questionnaire Date Thrive assessed: 10/31/22 FORREST-7 AMB Questionnaire FORREST-7 Date FORREST - 7 assessed: 11/24/23 Source: Developed by Drs. Jhon Abreu, Jolynn Lloyd, Ludwin Moreno and colleagues, with an educational hima from [employer]. Physical exam (Primary Care) Vital Signs: Last Vital Signs Temp 98.2 F 01/15/24 15:47 Pulse 67 01/15/24 15:47 Resp 14 01/15/24 15:47 BP 110/68 01/15/24 15:47 Pulse Ox 95 01/15/24 15:47 Oxygen Delivery Method Room Air 01/15/24 15:47 BMI result Body Mass Index 32.1 Tobacco/Smoking Status: Tobacco use Status Tobacco use date assessed 11/24/23 01/15/24 15:35 Patient Tobacco Use Status Never used Tobacco 01/15/24 15:35 e-Cigarette/Vaping Use Never Used 01/15/24 15:35 Thrive Assessment: Date of Thrive Assessment Date Thrive assessed 10/31/22 01/15/24 15:35 Const Orientation/consciousness: patient oriented x3 HENMT Ears: hearing grossly normal bilaterally and TM's normal bilaterally General nose exam: Normal nasal mucous membranes and turbinates present Face and sinus: Yes sinuses nontender Throat: Yes posterior oropharynx normal and Yes uvula midline Eyes Other: The bilateral upper and lower eyelids are noted to be slightly erythematous, nontender, with papular skin noted. Conjunctivae: conjunctivae normal Sclerae: sclerae normal Pupils: Equal, round and reactive pupils present EOM: EOMs intact bilaterally Direct Ophthalmoscopy: normal light reflex Neck Thyroid: Thyroid normal Lymphatic: no lymphadenopathy noted Resp Auscultation: clear to auscultation bilaterally Cardio Rate: regular rate Rhythm: regular rhythm Heart sounds: S1 normal heart sound present and S2 normal heart sound present Skin General skin exam: no rashes or lesions noted Neuro General: patient oriented x3, gait normal and no focal motor deficits Cranial nerves: Yes Equal, round and reactive pupils present Assessment and Plan Assessment & Plan (1) Eczematous dermatitis of eyelid: Code(s): H01.139 - Eczematous dermatitis of unspecified eye, unspecified eyelid Qualifiers: Laterality: bilateral Eyelid: both upper and lower Qualified Code(s): H01.131 - Eczematous dermatitis of right upper eyelid; H01.132 - Eczematous dermatitis of right lower eyelid; H01.134 - Eczematous dermatitis of left upper eyelid; H01.135 - Eczematous dermatitis of left lower eyelid Plan: Physical exam findings appear consistent with eczema. We will treat her with hydrocortisone cream. Advised to use very sparingly twice a day and to follow up if no improvement within a few days or if anything worsens or changes. We did discuss that prolonged use of this can cause atrophy of the skin.. (2) Seasonal allergies: Code(s): J30.2 - Other seasonal allergic rhinitis Plan: We will treat with Zyrtec. Plan Follow up as needed or as directed with by PCP. Sooner if needed. Patient understands and agrees with the plan. Medications: New hydrocortisone 0.5% 1 appl topical BID 7 days 28.4 grams 0RF cetirizine (Zyrtec) 10 mg PO DAILY 30 tabs 0RF Coding Level of Care Code Est Pt Level 3 (46837) Diagnoses Eczematous dermatitis of upper and lower eyelids of both eyes H01.131; H01.132; H01.134; H01.135 Laterality: bilateral Eyelid: both upper and lower Seasonal allergies J30.2
[2024-01-15 15:47] VITALS: BP 110/68; PULSE 67; RESP 14; TEMP 36.8; O2SAT 95; BMI 32.1
== END 2024-01-15 16:08 | disposition home or self-care (01) ==
PROVIDERS: PCP Nurse Practitioner Family; Visit Provider Physician Assistant
DX: H01.131 Eczematous dermatitis of right upper eyelid (principal); H01.132 Eczematous dermatitis of right lower eyelid; H01.134 Eczematous dermatitis of left upper eyelid; H01.135 Eczematous dermatitis of left lower eyelid; J30.2 Other seasonal allergic rhinitis
CPT/HCPCS: 99213

== ENCOUNTER 2024-02-16 10:55 | Outpatient (REF) | payer MEDICARE, MEDICAID, SELFPAY ==
[2024-02-16 15:28] LABS: Cholesterol 164 mg/dL (<200); HDL Cholesterol 46 mg/dL (>40); LDL Cholesterol Calculated 95 mg/dL (<100); Triglycerides 117 mg/dL (<150)
[2024-02-16 15:43] LABS: TSH reflex Free T4 3.78 uIU/mL (0.32-4.0)
== END 2024-02-16 10:56 | disposition home or self-care (01) ==
LOC: HO.WFDLDS 10:55
PROVIDERS: Visit Provider Nurse Practitioner Family
DX: E78.1 Pure hyperglyceridemia (principal); E03.9 Hypothyroidism, unspecified
CPT/HCPCS: 36415; 80061; 84443

== ENCOUNTER 2024-02-24 09:48 | Outpatient (AMB) | payer MEDICARE, MEDICAID, SELFPAY ==
[2024-02-24 09:54] VITALS: BP 118/76; PULSE 69; RESP 14; TEMP 36.5; O2SAT 99; BMI 32.6
--- NOTE | 2024-02-24 09:54 | MHC.PC.OV ---
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: No Accompanied by: Daughter Allergies amoxicillin Allergy (Severe, Verified 02/24/24 10:17) Anaphylaxis Medication List - Last Reconciled 02/24/24 by Sera Fox CNP acetaminophen ER 650 mg PO Q8H PRN atorvastatin 20 mg PO DAILY 90 days cetirizine (Zyrtec) 10 mg PO DAILY cholecalciferol (vitamin D3) 50 mcg PO DAILY 90 days cyanocobalamin (vitamin B-12) 100 mcg PO DAILY diclofenac sodium 1% (Arthritis Pain (diclofenac)) 2 grams topical BID duloxetine 20 mg PO BID 30 days famotidine 40 mg PO DAILY gabapentin 600 mg PO TID hydrocortisone 0.5% 1 appl topical BID 7 days hydroxyzine pamoate 25 mg PO BEDTIME levothyroxine 125 mcg PO DAILY 3 months simethicone (Gas Relief (simethicone)) 125 mg PO TID PRN 90 days tirzepatide (Mounjaro) 2.5 mg (0.5 mL) subcut QWEEK 4 weeks trazodone 100 mg PO BID 30 days Tobacco use date assessed: 11/24/23 Fall risk assessment: No Falls in past year Last assessed Fall Risk: 02/24/24 Dental Screening Dental Screen Date: 11/24/23 HPI HPI Comments History of Present Illness Details 69-year-old Sinhala speaking female, accompanied by her daughter, presents for hypertriglyceridemia, hypothyroidism, anxiety, and depression follow-up. She admits to taking her medications as prescribed without adverse reactions. She reports increased anxiety and depressive symptoms. According to her daughter, the patient is always sad, tearful, and stating that she wants to . She denies suicide plan or HI. She denies adequate sleep. She states that she sleeps an average of 3-6 hours nightly. Her daughter notes that for the past 2 weeks, the patient has been fasting daily for 7 hours for weight management. She has been been eating healthy. [facility] Medical History Depression Surgical History H/O eye surgery History of thyroidectomy Social History Household Members Other:: daughter Housing: House Alcohol intake: never Patient Tobacco Use Status: Never used Tobacco e-Cigarette/Vaping Use: Never Used Second Hand Smoke Exposure: No service: No Current occupational status: disabled Current occupational exposures/hazards: No Cognitive needs: No (cane, wheelchair) Hearing needs: No Vision needs: No (glasses) Questionnaire PHQ-9 Over the last 2 weeks, how often have you been bothered by any of the following problems? 1. Little interest or pleasure in doing things: several days 2. Feeling down, depressed, or hopeless: nearly every day 3. Trouble falling or staying asleep, or sleeping too much: nearly every day 4. Feeling tired or having little energy: nearly every day 5. Poor appetite or overeating: more than half the days 6. Feeling bad about yourself - or that you are a failure or have let yourself or your family down: nearly every day 7. Trouble concentrating on things, such as reading the newspaper or watching television: several days 8. Moving or speaking so slowly that other people could have noticed. Or the opposite - being so fidgety or restless that you have been moving around a lot more than usual: more than half the days 9. Thoughts that you would be better off or of hurting yourself in some way: several days Total score: 19 Depression Screening Interpretation: Positive Depression Screening Follow-up: Existing condition, In treatment and New Medication prescribed Depression Screening Done: Yes 03275 - PHQ-9 Billing: Yes Source: Developed by Drs. Jhon Abreu, Jolynn Lloyd, Ludwin Moreno and colleagues, with an educational hima from [employer]. Thrive Questionnaire Date Thrive assessed: 10/31/22 FORREST-7 AMB Questionnaire FORREST-7 Date FORREST - 7 assessed: 02/24/24 Feeling nervous, anxious, or on edge: 2 = More than half the days Not being able to stop or control worryin = Nearly every day Worrying too much about different things: 3 = Nearly every day Trouble relaxin = Nearly every day Being so restless that it is hard to sit still: 3 = Nearly every day Becoming easily annoyed or irritable: 3 = Nearly every day Feeling afraid as if something awful might happen: 3 = Nearly every day Total FORREST-7 score (0-4 normal; 5-9 mild; 10-14 moderate; 15-21 severe): 20 Source: Developed by Drs. Jhon Abreu, Jloynn Lloyd, Ludwin Moreno and colleagues, with an educational hima from [employer]. FORREST-7 Assessment Billing FORREST-7 Assessment Tool: FORREST-7 Assessment 42404 Review of Systems Const Details: Const Denies chills, Denies fatigue, Denies fever(s), Denies headache(s) and Denies weakness ENT Denies dizziness and Denies headache(s) Card Denies chest pain, Denies lightheadedness, Denies dyspnea and Denies other (Palpitations) Resp Denies cough, Denies dyspnea, Denies wheezing and Denies other ( shortness of breath) GI Denies abdominal pain, Denies melena, Denies hematochezia, Denies change in bowel habits, Denies dyspepsia and Denies nausea Denies hematuria and Denies dysuria Musc Denies abnormal gait, Denies myalgias, Denies arthralgias, Denies numbness and Denies tingling Skin/Breast Denies rash, Denies unusual bruising and Denies wounds Neuro Denies abnormal gait, Denies dizziness, Denies headache(s), Denies memory loss, Denies numbness, Denies Sensory deficit (Neuro), Denies tingling and Denies weakness Psych Reports anxiety, Reports depression, Denies memory loss Endo Denies cold intolerance, Denies fatigue, Denies heat intolerance, Denies polydipsia and Denies polyuria Aller/Immun Denies wheezing Physical exam (Primary Care) Vital Signs: Last Vital Signs Temp 97.7 F 02/24/24 09:54 Pulse 69 02/24/24 09:54 Resp 14 02/24/24 09:54 BP 118/76 02/24/24 09:54 Pulse Ox 99 02/24/24 09:54 Oxygen Delivery Method Room Air 02/24/24 09:54 BMI result Body Mass Index 32.6 Tobacco/Smoking Status: Tobacco use Status Tobacco use date assessed 11/24/23 02/24/24 10:03 Patient Tobacco Use Status Never used Tobacco 02/24/24 10:03 e-Cigarette/Vaping Use Never Used 02/24/24 10:03 PHQ-9: PHQ-9 Score PHQ-9: Total score 19 02/24/24 10:03 Depression Screening Interpretation: Positive Depression Screening Follow-up: Existing condition, In treatment and New Medication prescribed Thrive Assessment: Date of Thrive Assessment Date Thrive assessed 10/31/22 02/24/24 10:03 Const Other: General: no acute distress and well developed Nutritional Appearance: well nourished Orientation/consciousness: patient oriented x3 HENMT Head: Yes normocephalic and Yes atraumatic Eyes General: appearance normal, both eyes and all related structures Pupils: Equal, round and reactive pupils present EOM: EOMs intact bilaterally Resp Effort & Inspection: normal respiratory effort Auscultation: clear to auscultation bilaterally Cardio Rate: regular rate Rhythm: regular rhythm Heart sounds: S1 normal heart sound present, S2 normal heart sound present, no gallops, no murmurs and no rubs GI Palpation (GI): No Abdominal aortic bruit present, Soft to palpation, nontender, No hepatosplenomegaly present and No Rebound tenderness present Auscultation: normal bowel sounds General: Yes no CVA tenderness Back/Spine/Pelvis Back: no CVA tenderness Cervical Spine: cervical ROM normal and No Cervical spine tenderness Thoracic/Lumbar Spine: thoraco-lumbar ROM normal, No pain with thoraco-lumbar ROM, No thoracic spinal tenderness and No lumbar spinal tenderness Extrem General: Yes normal to inspection, No edema and No calf tenderness Skin General: warm and dry. Normal skin color. Normal skin turgor Neuro General: patient oriented x3, gait normal and no focal neuro deficit Cranial nerves: Yes Equal, round and reactive pupils present Cognition (Neuro): normal cognition Gait exam (Neuro): Normal gait present Sensory Exam: No Sensory deficit (Neuro) Psych Appearance: grossly normal Affect: normal affect Attitude: cooperative Thought process: Normal thought process present Assessment and Plan Assessment & Plan (1) Anxiety and depression: Code(s): F41.9 - Anxiety disorder, unspecified; F32.A - Depression, unspecified Plan: Increased anxiety and depressive symptoms She is always sad, tearful, and stating that she wants to . No suicide plan or HI Sleep is also an issue. She sleeps an average of 3-6 hours nightly PHQ-9 and FORREST-7 scores revealed moderately severe depression and severe anxiety respectively Duloxetine increased to 30 mg twice daily Will start buspirone 7.5 mg twice daily to target anxiety Hydroxyzine 25 mg at bedtime discontinued Encouraged to take her medications as prescribed. Instructed on the risks, benefits, and potential adverse reactions of her medications Routine exercise encouraged Her daughter is working on getting an Sinhala speaking psychiatrist for the patient Follow-up in 1 month or return sooner with worsening or new symptoms Verbalized understanding and agreed with the treatment plan (2) High triglycerides: Code(s): E78.1 - Pure hyperglyceridemia Plan: Recent lipid panel level is normal Continue current treatment regimen Advised to limit foods high in saturated fat and avoid foods high in trans fat Routine exercise encouraged Will recheck lipid levels in 4 months Verbalized understanding and agreed with treatment plan (3) Hypothyroidism (acquired): Code(s): E03.9 - Hypothyroidism, unspecified Plan: Recent TSH is normal Continue current treatment regimen Will recheck TSH in 4 months Verbalized understanding and agreed with the plan Medications: New buspirone 7.5 mg PO BID 30 days 60 tabs 3RF duloxetine 30 mg PO BID 30 days 60 caps 3RF Discontinued duloxetine Discontinued Reason: Doctor's Order 20 mg PO BID 30 days 60 caps 0RF Coding Level of Care Code Est Pt Level 4 (45475) Complex EM visit Add On G2211 Diagnoses Anxiety and depression F41.9; F32.A High triglycerides E78.1 Hypothyroidism (acquired) E03.9 Additional Codes FORREST-7 Assessment Billing - FORREST-7 Assessment Tool: FORREST-7 Assessment 58416 ([id number])
== END 2024-02-24 10:42 | disposition home or self-care (01) ==
PROVIDERS: PCP Nurse Practitioner Family; Visit Provider Nurse Practitioner Family
DX: E78.1 Pure hyperglyceridemia (principal); F41.9 Anxiety disorder, unspecified; F32.A Depression, unspecified; E03.9 Hypothyroidism, unspecified
CPT/HCPCS: 99214; G2211

== ENCOUNTER 2024-03-26 08:00 | Outpatient (AMB) | payer MEDICARE, MEDICAID, SELFPAY ==
--- NOTE | 2024-03-26 08:03 | MHC.PC.OV ---
Vital Signs 03/26/24 08:10 Height 5 ft 6 in Weight 205 lb BMI 33.1 BP 108/72 Blood Pressure Location Rt brachial Position Sitting Respiration 16 Pulse 78 Pulse Source Pulse Oximeter Temp 97.6 F Temp Source Oral Pulse Oximetry (%) 96 Oxygen Delivery Method Room Air Intake Visit Reasons: f/u Anxiety&Depression Intake Note: patient here for follow up and anxiety.w Wellness Program Coordinator Required: No Accompanied by: Daughter Is last menstrual period known: No Post menopausal: No Patient : No Allergies amoxicillin Allergy (Severe, Verified 03/26/24 08:16) Anaphylaxis Medication List - Last Reconciled 03/26/24 by Sera Fox CNP acetaminophen ER 650 mg PO Q8H PRN atorvastatin 20 mg PO DAILY 90 days buspirone 7.5 mg PO BID 30 days cetirizine (Zyrtec) 10 mg PO DAILY cholecalciferol (vitamin D3) 50 mcg PO DAILY 90 days cyanocobalamin (vitamin B-12) 100 mcg PO DAILY diclofenac sodium 1% (Arthritis Pain (diclofenac)) 2 grams topical BID duloxetine 30 mg PO BID 30 days famotidine 40 mg PO DAILY gabapentin 600 mg PO TID hydrocortisone 0.5% 1 appl topical BID 7 days levothyroxine 125 mcg PO DAILY 3 months simethicone (Gas Relief (simethicone)) 125 mg PO TID PRN 90 days tirzepatide (Mounjaro) 2.5 mg (0.5 mL) subcut QWEEK 4 weeks trazodone 100 mg PO BID 30 days Tobacco use date assessed: 03/26/24 Fall risk assessment: No Falls in past year Dental Screening Dental Screen Date: 03/26/24 Did you have a dental visit in the last 12 months?: Yes Did you have a dental problem in the last 6 months where you did not have access to dental care?: No Was dental information given to patient?: Patient has dentist HPI HPI Comments History of Present Illness Details 69-year-old Faroese speaking female, accompanied by her daughter, presents for anxiety and depression follow-up She admits to taking her medications as prescribed without adverse reactions She reports minimal improvement of her anxiety and depressive symptoms after medication changes at her last visit. She is always tired. Sleepy still an issue; she sleeps an average of 4-6 hours nightly. She continues to experience passive suicide ideation. She denies suicide plan. She denies homicidal ideation He daughter notes that the patient has an appointment later this afternoon to establish with an Belarusian speaking psychiatrist at [facility] in [place]. Her health plan declined the Romansh speaking psychiatrist No acute symptoms at this time Interpretations by the patient's daughter per patient's preference [facility] Medical History Depression Surgical History H/O eye surgery History of thyroidectomy Social History Household Members Other:: daughter Housing: House Alcohol intake: never Patient Tobacco Use Status: Never used Tobacco e-Cigarette/Vaping Use: Never Used Second Hand Smoke Exposure: No Patient : No service: No Current occupational status: disabled Current occupational exposures/hazards: No Cognitive needs: No (cane, wheelchair) Hearing needs: No Vision needs: No (glasses) Questionnaire PHQ-9 Over the last 2 weeks, how often have you been bothered by any of the following problems? 1. Little interest or pleasure in doing things: nearly every day 2. Feeling down, depressed, or hopeless: nearly every day 3. Trouble falling or staying asleep, or sleeping too much: nearly every day 4. Feeling tired or having little energy: nearly every day 5. Poor appetite or overeating: nearly every day 6. Feeling bad about yourself - or that you are a failure or have let yourself or your family down: nearly every day 7. Trouble concentrating on things, such as reading the newspaper or watching television: nearly every day 8. Moving or speaking so slowly that other people could have noticed. Or the opposite - being so fidgety or restless that you have been moving around a lot more than usual: nearly every day 9. Thoughts that you would be better off or of hurting yourself in some way: more than half the days Total score: 26 Depression Screening Interpretation: Positive Depression Screening Follow-up: Existing condition and In treatment Depression Screening Done: Yes 60068 - PHQ-9 Billing: Yes Source: Developed by Drs. Jhon Abreu, Jolynn B.WLudwin Valentino and colleagues, with an educational hima from [employer]. Thrive Questionnaire Date Thrive assessed: 10/31/22 AUDIT C Alcohol Use Questionnaire (AUDIT-C) 1. How often do you have a drink containing alcohol?: Never Total Score: 0 Score Reviewed/Action Taken: Yes FORREST-7 AMB Questionnaire FORREST-7 Date FORREST - 7 assessed: 03/26/24 Feeling nervous, anxious, or on edge: 3 = Nearly every day Not being able to stop or control worryin = More than half the days Worrying too much about different things: 2 = More than half the days Trouble relaxin = Nearly every day Being so restless that it is hard to sit still: 3 = Nearly every day Becoming easily annoyed or irritable: 2 = More than half the days Feeling afraid as if something awful might happen: 2 = More than half the days Total FORREST-7 score (0-4 normal; 5-9 mild; 10-14 moderate; 15-21 severe): 17 Source: Developed by Drs. Jhon Abreu, Ludwin Patel and colleagues, with an educational hima from [employer]. FORREST-7 Assessment Billing FORREST-7 Assessment Tool: FORREST-7 Assessment 35838 Review of Systems Const Details: Const Denies chills, Denies fatigue, Denies fever(s), Denies headache(s) and Denies weakness ENT Denies dizziness and Denies headache(s) Card Denies chest pain, Denies lightheadedness, Denies dyspnea and Denies other (Palpitations) Resp Denies cough, Denies dyspnea, Denies wheezing and Denies other ( shortness of breath) GI Denies abdominal pain, Denies melena, Denies hematochezia, Denies change in bowel habits, Denies dyspepsia and Denies nausea Denies hematuria and Denies dysuria Musc Denies abnormal gait, Denies myalgias, Denies arthralgias, Denies numbness and Denies tingling Skin/Breast Denies rash, Denies unusual bruising and Denies wounds Neuro Denies dizziness, Denies headache(s), Denies memory loss, Denies numbness, Denies Sensory deficit (Neuro), Denies tingling and Denies weakness Psych Denies anxiety, Denies depression, Denies memory loss Endo Denies cold intolerance, Denies fatigue, Denies heat intolerance, Denies polydipsia and Denies polyuria Aller/Immun Denies wheezing Physical exam (Primary Care) Vital Signs: Last Vital Signs Temp 97.6 F 03/26/24 08:10 Pulse 78 03/26/24 08:10 Resp 16 03/26/24 08:10 BP 108/72 03/26/24 08:10 Pulse Ox 96 03/26/24 08:10 Oxygen Delivery Method Room Air 03/26/24 08:10 BMI result Body Mass Index 33.1 Tobacco/Smoking Status: Tobacco use Status Tobacco use date assessed 03/26/24 03/26/24 08:10 Patient Tobacco Use Status Never used Tobacco 03/26/24 08:06 e-Cigarette/Vaping Use Never Used 03/26/24 08:06 PHQ-9: PHQ-9 Score PHQ-9: Total score 03/26/24 08:16 Depression Screening Interpretation: Positive Depression Screening Follow-up: Existing condition and In treatment Thrive Assessment: Date of Thrive Assessment Date Thrive assessed 10/31/22 03/26/24 08:06 Const Other: General: no acute distress and well developed Nutritional Appearance: well nourished Orientation/consciousness: patient oriented x3 HENMT Head: Yes normocephalic and Yes atraumatic Eyes General: appearance normal, both eyes and all related structures Pupils: Equal, round and reactive pupils present EOM: EOMs intact bilaterally Resp Effort & Inspection: normal respiratory effort Auscultation: clear to auscultation bilaterally Cardio Rate: regular rate Rhythm: regular rhythm Heart sounds: S1 normal heart sound present, S2 normal heart sound present, no gallops, no murmurs and no rubs GI Palpation (GI): No Abdominal aortic bruit present, Soft to palpation, nontender, No hepatosplenomegaly present and No Rebound tenderness present Auscultation: normal bowel sounds General: Yes no CVA tenderness Back/Spine/Pelvis Back: no CVA tenderness Cervical Spine: cervical ROM normal and No Cervical spine tenderness Thoracic/Lumbar Spine: thoraco-lumbar ROM normal, No pain with thoraco-lumbar ROM, No thoracic spinal tenderness and No lumbar spinal tenderness Extrem General: Yes normal to inspection, No edema and No calf tenderness Skin General: warm and dry. Normal skin color. Normal skin turgor Neuro General: patient oriented x3, gait abnormal and no focal neuro deficit Cranial nerves: Yes Equal, round and reactive pupils present Cognition (Neuro): normal cognition Gait exam (Neuro): abnormal gait present at baseline Sensory Exam: No Sensory deficit (Neuro) Psych Appearance: grossly normal Affect: normal affect Attitude: cooperative Thought process: Normal thought process present Assessment and Plan Assessment & Plan (1) Anxiety and depression: Code(s): F41.9 - Anxiety disorder, unspecified; F32.A - Depression, unspecified Plan: Minimally improved anxiety and depressive symptoms since last visit. Sleep is still an issue Will increase buspirone to 15 mg twice daily. Advised to take as prescribed. Continue to take duloxetine and trazodone as prescribed Follow-up with psychiatrist later today as planned Encouraged to get lab work done before next visit Return in 1 month for an extended physical exam or sooner with worsening or new symptoms Verbalized understanding and agreed with the treatment plan (2) Laboratory tests ordered as part of a complete physical exam (CPE): Code(s): Z00.00 - Encounter for general adult medical examination without abnormal findings Plan: Fasting labs ordered in preparation of a complete physical exam. Advised to fast for at least 10 hours before getting labs drawn. May drink water Verbalized understanding and agreed with treatment plan. Orders: Orders Comprehensive [place]. Panel Fast Today Z00.00 - Encounter for general adult medical examination without abnormal findings UA CC w/rflx Micro + Cult Today Z00.00 - Encounter for general adult medical examination without abnormal findings Microalbumin, Random (w Creat) Today Z00.00 - Encounter for general adult medical examination without abnormal findings Complete Blood Count Auto Diff Today Z00.00 - Encounter for general adult medical examination without abnormal findings Medications: New buspirone 15 mg PO BID 30 days 60 tabs 3RF Refilled acetaminophen ER 650 mg PO Q8H PRN 60 tabs 3RF pain Discontinued buspirone Discontinued Reason: Doctor's Order 7.5 mg PO BID 30 days 60 tabs 3RF Coding Level of Care Code Est Pt Level 4 (63437) Complex EM visit Add On G2211 Diagnoses Anxiety and depression F41.9; F32.A Laboratory tests ordered as part of a complete physical exam (CPE) Z00.00 Additional Codes FORREST-7 Assessment Billing - FORREST-7 Assessment Tool: FORREST-7 Assessment 58117 ([id number])
[2024-03-26 08:10] VITALS: BP 108/72; PULSE 78; RESP 16; TEMP 36.4; O2SAT 96; BMI 33.1
== END 2024-03-26 08:33 | disposition home or self-care (01) ==
PROVIDERS: PCP Nurse Practitioner Family; Visit Provider Nurse Practitioner Family
DX: F41.9 Anxiety disorder, unspecified (principal); F32.A Depression, unspecified
CPT/HCPCS: 99214; G2211

== ENCOUNTER 2024-03-26 09:09 | Outpatient (REF) | payer MEDICARE, MEDICAID, SELFPAY ==
[2024-03-26 11:36] LABS: Appearance Urine Clear; Color Urine Yellow; Glucose Urine UA Negative (Negative); Leukocyte Esterase Urine Negative (Negative); Nitrite Urine Negative (Negative); PH 5.5 (5.0-9.0); Specific Gravity - Urine 1.015 (1.005-1.025); UMIC TRIGGER UACC YES; Urine Blood Trace (Negative); Urine Ketones Negative (Negative); Urine Protein Negative (Neg-Trace)
[2024-03-26 11:39] LABS: Bacteria Urine None Seen (None Seen); Hyaline Casts Urine 0-2 /LPF (0-2); RBC Urine 0-2 /HPF (0-2); Squamous Epithelial Cell Urine 0-2 /HPF (0-2); WBC Urine 0-5 /HPF (0-5)
[2024-03-26 11:42] LABS: MANUAL DIFF FLAG NO
[2024-03-26 11:52] LABS: Basophils Absolute Auto 0.1 X10*3/uL (0.0-0.2); Basophils Percent Auto 0.7 % (0-2); Eosinophils Absolute Auto 0.2 X10*3/uL (0.0-0.4); Eosinophils Percent Auto 2.7 % (0-4); Hematocrit 41.9 % (37.0-47.0); Hemoglobin 13.9 g/dl (12.0-16.0); Imm Gran Abs Auto 0.02 X10*3/uL (0.00-0.03); Imm Gran Pct Auto 0.3 % (0.0-0.4); Lymphocytes Absolute Auto 2.7 X10*3/uL (1.2-4.9); Lymphocytes Percent Auto 37.9 % (20-40); Mean Corpuscular HGB Conc 33.2 g/dl (31.0-35.0); Mean Corpuscular Volume 93.5 fL (80.0-98.0); Mean Platelet Volume 10.4 fL (9.4-12.3); Monocytes Absolute Auto 0.5 X10*3/uL (0.1-1.2); Monocytes Percent Auto 7.6 % (2-11); Neutrophils Absolute Auto 3.6 x10*3/uL (2.0-8.3); Neutrophils Percent Auto 50.8 % (45-73); Platelet Count 209 X10*3/uL (160-400); Red Blood Count 4.48 X10*6/uL (4.20-5.50); Red Cell Distribution Width 12.8 % (11.0-16.0); White Blood Count 7.1 X10*3/uL (4.8-10.8)
[2024-03-26 12:02] LABS: Alanine Aminotransferase 23 U/L (0-31); Albumin Level 4.1 g/dL (3.5-5.0); Alkaline Phosphatase 53 U/L (39-117); Anion Gap 12 (12-20); Aspartate Amino Transferase 23 U/L (5-31); Bilirubin Total 0.4 mg/dL (0.0-1.0); Blood Urea Nitrogen 13 mg/dL (9-16); Carbon Dioxide 26 mmol/L (22-29); Chloride 106 mmol/L (96-108); Estimated Glomerular Filt Rate > 60; Glucose Fasting 97 mg/dL (60-99); Potassium 4.7 mmol/L (3.3-5.1); Sodium 139 mmol/L (135-145); Total Protein 7.2 g/dL (6.5-8.0)
[2024-03-26 12:19] LABS: Creatinine Urine 70.52 mg/dL; Microalbum/Creatinine Ratio Ur 8.5 ug/mg cr (<30)
== END 2024-03-26 09:10 | disposition home or self-care (01) ==
LOC: HO.WFDLDS 09:09
PROVIDERS: Visit Provider Nurse Practitioner Family
DX: Z00.00 Encounter for general adult medical examination without abnormal findings (principal)
CPT/HCPCS: 36415; 80053; 81001; 82043; 82570; 85025

== ENCOUNTER 2024-04-30 08:28 | Outpatient (AMB) | payer MEDICARE, MEDICAID, SELFPAY ==
[2024-04-30 08:35] VITALS: BP 116/68; PULSE 69; RESP 13; O2SAT 97
--- NOTE | 2024-04-30 08:35 | A.OFFPC_ITS ---
Vital Signs 04/30/24 08:35 Height 5 ft 6 in BP 116/68 Blood Pressure Location Rt brachial Position Sitting Respiration 13 Pulse 69 Pulse Source Pulse Oximeter Pulse Oximetry (%) 97 Oxygen Delivery Method Room Air Intake Visit Reasons: cpe Intake Note: Patient is here with her daughter who reports patient reports feeling down, depressed and not herself. She reports patient is seeing a therapist and will be seeing therapy every 2 weeks. Daughter reports patient has difficulty sleeping, Public Health Teacher Required: Yes Public Health Teacher Name: Daughter Accompanied by: Daughter Allergies amoxicillin Allergy (Severe, Verified 04/30/24 08:40) Anaphylaxis Tobacco use date assessed: 03/26/24 Fall risk assessment: No Falls in past year Last assessed Fall Risk: 04/30/24 Dental Screening Dental Screen Date: 03/26/24 HPI HPI Comments History of Present Illness Details 69-year-old Faroese speaking female, acco mpanied by her daughter, presents for AWV. Declines translation service, daughter preferred [facility]: Following with [facility]. She will be seeing the psychiatrist there. She is sleepy in the daytime. Still sometimes only getting a few hours of sleep. She is on trazodone 100mg bid, buspar, cymbalta She successfully lost weight on mounjaro while she was traveling to [facility] last year but insurance won't cover. She is obese Hypothyroid: TSH within normal range on levothyroxine Has chronic left hand pain, bilateral knee pain. Wraps both. Would like to see rhuematology Reports colonoscopy 2 years ago Reports mammo within 2 years. HRA reviewed. Dependent on daughter for assist with ADLS +depression, ongoing treatment. ROS CONSTITUTIONAL: Denies weight loss, fever and chills. HEENT: Denies changes in vision and hearing. RESPIRATORY: Denies SOB and cough. CV: Denies palpitations and CP GI: Denies abdominal pain, nausea, vomiting and diarrhea. : Denies dysuria and urinary frequency. MSK: Denies new myalgia and joint pain. SKIN: Denies rash and pruritus. NEUROLOGICAL: Denies headache PSYCHIATRIC: Denies recent changes in mood. PHYSICAL EXAM: GENERAL: In WC. Depressed affect. NAD EYES: EOMI. Anicteric. HENT: Moist mucous membranes. No scleral icterus. No cervical lymphadenopathy. LUNGS: Clear to auscultation bilaterally. CARDIOVASCULAR: Regular rate and rhythm. No murmur. No JVD. ABDOMEN: Soft, non-tender +bs EXTREMITIES: No edema. Non-tender. SKIN: No rashes or lesions. Warm. NEUROLOGIC: No focal neurological deficits. CN II-XII grossly intact [facility] Medical History Depression Surgical History H/O eye surgery History of thyroidectomy Social History (Updated 04/30/24 @ 08:49 by Ondina Roberts CMA) Household Members: Family Household Members Other:: daughter Housing: House Are you a primary hearing healthcare practitioner to a significant other at home: No 75 years or older and lives alone: No Alcohol intake: never Patient Tobacco Use Status: Never used Tobacco e-Cigarette/Vaping Use: Never Used Second Hand Smoke Exposure: No service: No Current occupational status: disabled Current occupational exposures/hazards: No Cognitive needs: No (cane, wheelchair) Hearing needs: No Vision needs: No (glasses) Questionnaire PHQ-9 Over the last 2 weeks, how often have you been bothered by any of the following problems? 1. Little interest or pleasure in doing things: not at all 2. Feeling down, depressed, or hopeless: nearly every day 3. Trouble falling or staying asleep, or sleeping too much: nearly every day 4. Feeling tired or having little energy: nearly every day 5. Poor appetite or overeating: more than half the days 6. Feeling bad about yourself - or that you are a failure or have let yourself or your family down: more than half the days 7. Trouble concentrating on things, such as reading the newspaper or watching television: nearly every day 8. Moving or speaking so slowly that other people could have noticed. Or the opposite - being so fidgety or restless that you have been moving around a lot more than usual: more than half the days 9. Thoughts that you would be better off or of hurting yourself in some way: nearly every day Total score: 21 Depression Screening Interpretation: Positive Depression Screening Follow-up: In treatment and Community Mental Health Worker F/U Depression Screening Done: Yes 65275 - PHQ-9 Billing: Yes Source: Developed by Drs. Jhon Abreu, Jolynn Lloyd, Ludwin Moreno and colleagues, with an educational hima from [employer]. Thrive Questionnaire Date Thrive assessed: 04/30/24 I am a: Patient What is your living situation today?: I have a steady place to live Within the past 12 months, did the food you bought not last and you didn't have the money to get more?: Never true Within the past 12 months, did you worry whether your food would run out before you got money to buy more?: Never true Do you have trouble paying for medicines?: No Do you have trouble getting transportation to medical appointments?: No Do you have trouble paying your heating and electricity bill?: No Do you have trouble taking care of your child, family member or friend?: No Do you have trouble with day-to-day activities such as bathing, preparing meals, shopping, managing finances, etc.?: No Are you currently unemployed and looking for a job?: No Are you interested in more education?: No Please select the resources that you would like help with: None Currently or been in a relationship where the following occur: No concerns reported THRIVE Score: 0 AUDIT C Alcohol Use Questionnaire (AUDIT-C) 1. How often do you have a drink containing alcohol?: Never 3. How often do you have six or more drinks on one occasion?: Never Total Score: 0 FORREST-7 AMB Questionnaire FORREST-7 Date FORREST - 7 assessed: 04/30/24 Feeling nervous, anxious, or on edge: 3 = Nearly every day Not being able to stop or control worryin = Nearly every day Worrying too much about different things: 3 = Nearly every day Trouble relaxin = More than half the days Being so restless that it is hard to sit still: 2 = More than half the days Becoming easily annoyed or irritable: 2 = More than half the days Feeling afraid as if something awful might happen: 3 = Nearly every day Total FORREST-7 score (0-4 normal; 5-9 mild; 10-14 moderate; 15-21 severe): 18 Source: Developed by Drs. Jhon Abreu, Ludwin Patel and colleagues, with an educational hima from [employer]. FORREST-7 Assessment Billing FORREST-7 Assessment Tool: FORREST-7 Assessment 48875 Physical exam (Primary Care) Vital Signs: Last Vital Signs Pulse 69 04/30/24 08:35 Resp 13 04/30/24 08:35 BP 116/68 04/30/24 08:35 Pulse Ox 97 04/30/24 08:35 Oxygen Delivery Method Room Air 04/30/24 08:35 Tobacco/Smoking Status: Tobacco use Status Tobacco use date assessed 03/26/24 04/30/24 08:35 Patient Tobacco Use Status Never used Tobacco 04/30/24 08:49 e-Cigarette/Vaping Use Never Used 04/30/24 08:49 PHQ-9: PHQ-9 Score PHQ-9: Total score 21 04/30/24 08:47 Depression Screening Interpretation: Positive Depression Screening Follow-up: In treatment and Community Mental Health Worker F/U Thrive Assessment: Date of Thrive Assessment Date Thrive assessed 04/30/24 04/30/24 08:47 Currently or been in a relationship where the following occur: No concerns reported Assessment and Plan Assessment & Plan (1) Encounter for annual wellness visit (AWV) in Medicare patient: Code(s): Z00.00 - Encounter for general adult medical examination without abnormal findings Medications: New trazodone 150 mg (3 x 50 mg) PO BEDTIME 270 tabs 3RF Wegovy (semaglutide (weight loss)) administer weeks 1 through 4 of therapy 0.25 mg (0.5 mL) subcut QWEEK 2 mL 1RF NS E78.1 - Pure hyperglyceridemia, Z68.36 - Body mass index [BMI] 36.0- 36.9, adult Refilled levothyroxine 125 mcg PO DAILY 3 months 90 tabs 3RF cholecalciferol (vitamin D3) 50 mcg PO DAILY 90 days 90 caps 3RF cetirizine (Zyrtec) 10 mg PO DAILY 90 tabs 3RF Discontinued tirzepatide (Mounjaro) Discontinued Reason: Doctor's Order 2.5 mg (0.5 mL) subcut QWEEK 4 weeks 2 mL 0RF trazodone Discontinued Reason: Doctor's Order 100 mg PO BID 30 days 60 tabs 2RF Coding Level of Care Code Est Pt Prev Care >65y(08725) Diagnoses Encounter for annual wellness visit (AWV) in Medicare patient Z00.00 Additional Codes FORREST-7 Assessment Billing - FORREST-7 Assessment Tool: FORREST-7 Assessment 10498 ([id number]) Comment [id number] not cpe
== END 2024-04-30 09:16 | disposition home or self-care (01) ==
PROVIDERS: PCP Nurse Practitioner Family; Visit Provider Internal Medicine
DX: Z00.00 Encounter for general adult medical examination without abnormal findings (principal)
CPT/HCPCS: 99397

== ENCOUNTER 2024-08-02 12:50 | Outpatient (AMB) | payer MEDICARE, MEDICAID, SELFPAY ==
--- NOTE | 2024-08-02 13:14 | MHC.PC.OV ---
Vital Signs 08/02/24 13:21 Height 5 ft 6 in Weight 220 lb BMI 35.5 BP 124/60 Blood Pressure Location Rt brachial Position Sitting Respiration 16 Pulse 68 Pulse Source Pulse Oximeter Temp 98.2 F Temp Source Temporal Artery Scan Pulse Oximetry (%) 96 Oxygen Delivery Method Room Air Intake Visit Reasons: f/up depression, insomnia Intake Note: patient here for follow up on depression and insomnia Recovery Unit Operator Required: Yes Recovery Unit Operator Name: patient refused Accompanied by: Daughter Is last menstrual period known: No Post menopausal: No Patient : No Allergies amoxicillin Allergy (Severe, Verified 08/02/24 13:55) Anaphylaxis Medication List - Last Reconciled 08/02/24 by Sera Fox CNP acetaminophen ER 650 mg PO Q8H PRN atorvastatin 20 mg PO DAILY 90 days buspirone 15 mg PO BID 30 days cetirizine (Zyrtec) 10 mg PO DAILY cholecalciferol (vitamin D3) 50 mcg PO DAILY 90 days cyanocobalamin (vitamin B-12) 100 mcg PO DAILY diclofenac sodium 1% (Arthritis Pain (diclofenac)) 2 grams topical BID duloxetine 30 mg PO BID 30 days famotidine 40 mg PO DAILY gabapentin 600 mg PO TID hydrocortisone 0.5% 1 appl topical BID 7 days levothyroxine 125 mcg PO DAILY 3 months simethicone (Gas Relief (simethicone)) 125 mg PO TID PRN 90 days trazodone 150 mg (3 x 50 mg) PO BEDTIME Wegovy (semaglutide (weight loss)) 0.25 mg (0.5 mL) subcut QWEEK NS Tobacco use date assessed: 08/02/24 Fall risk assessment: No Falls in past year Last assessed Fall Risk: 08/02/24 Dental Screening Dental Screen Date: 08/02/24 Did you have a dental visit in the last 12 months?: Yes Did you have a dental problem in the last 6 months where you did not have access to dental care?: No Was dental information given to patient?: Patient has dentist HPI HPI Comments History of Present Illness Details The patient is a 69-year-old Yoruba speaking female, accompanied by her daughter, presenting with symptoms of depression, insomnia, and bilateral knee pain. Her depression has been flagged as moderately severe by a PHQ-9 assessment, with accompanying severe anxiety as indicated by a FORREST scale score. Her sleep is significantly affected, with only four to five hours achieved per night despite medication. This insomnia is a chronic issue. The patient is experiencing bilateral knee pain, with a higher intensity of pain reported in the right knee. She has had an evaluation by an orthopedist in [place], and a follow-up appointment is scheduled for next week. Additionally, the patient is under psychological care and has had one session with a therapist at [facility] with plans to see a psychiatrist next month. Recently, the patient reported left ear pain lasting three weeks following flu-like symptoms that were self-treated with home remedies. There was no medical evaluation to confirm the flu diagnosis. She denies fever, but she has experienced hearing difficulty and discomfort. Interpretation by the patient's daughter, per patient's preference. [facility] Medical History Depression Surgical History H/O eye surgery History of thyroidectomy Social History (Updated 04/30/24 @ 08:49 by Ondina Roberts CMA) Household Members: Family Household Members Other:: daughter Housing: House Are you a primary direct care supervisor to a significant other at home: No 75 years or older and lives alone: No Alcohol intake: never Patient Tobacco Use Status: Never used Tobacco e-Cigarette/Vaping Use: Never Used Second Hand Smoke Exposure: No service: No Current occupational status: disabled Current occupational exposures/hazards: No Cognitive needs: Yes (cane, wheelchair) Hearing needs: No Vision needs: Yes (glasses) Questionnaire PHQ-9 Over the last 2 weeks, how often have you been bothered by any of the following problems? 1. Little interest or pleasure in doing things: nearly every day 2. Feeling down, depressed, or hopeless: nearly every day 3. Trouble falling or staying asleep, or sleeping too much: not at all 4. Feeling tired or having little energy: nearly every day 5. Poor appetite or overeating: nearly every day 6. Feeling bad about yourself - or that you are a failure or have let yourself or your family down: nearly every day 7. Trouble concentrating on things, such as reading the newspaper or watching television: not at all 8. Moving or speaking so slowly that other people could have noticed. Or the opposite - being so fidgety or restless that you have been moving around a lot more than usual: several days 9. Thoughts that you would be better off or of hurting yourself in some way: nearly every day Total score: 19 Depression Screening Interpretation: Positive Depression Screening Follow-up: Existing condition Depression Screening Done: Yes Source: Developed by Drs. Jhon Abreu, Jolynn Lloyd, Ludwin Moreno and colleagues, with an educational hima from [employer]. Thrive Questionnaire Date Thrive assessed: 08/02/24 I am a: Parent/Caregiver What is your living situation today?: I have a steady place to live Within the past 12 months, did the food you bought not last and you didn't have the money to get more?: Never true Within the past 12 months, did you worry whether your food would run out before you got money to buy more?: Never true Do you have trouble paying for medicines?: No Do you have trouble getting transportation to medical appointments?: No Do you have trouble paying your heating and electricity bill?: No Do you have trouble taking care of your child, family member or friend?: No Do you have trouble with day-to-day activities such as bathing, preparing meals, shopping, managing finances, etc.?: No Are you currently unemployed and looking for a job?: No Are you interested in more education?: No Please select the resources that you would like help with: None Currently or been in a relationship where the following occur: I choose not to answer THRIVE Score: 0 AUDIT C Alcohol Use Questionnaire (AUDIT-C) 1. How often do you have a drink containing alcohol?: Never Total Score: 0 FORREST-7 AMB Questionnaire FORREST-7 Date FORREST - 7 assessed: 08/02/24 Feeling nervous, anxious, or on edge: 3 = Nearly every day Not being able to stop or control worryin = Nearly every day Worrying too much about different things: 3 = Nearly every day Trouble relaxin = Nearly every day Being so restless that it is hard to sit still: 3 = Nearly every day Becoming easily annoyed or irritable: 1 = Several days Feeling afraid as if something awful might happen: 3 = Nearly every day Total FORREST-7 score (0-4 normal; 5-9 mild; 10-14 moderate; 15-21 severe): 19 Source: Developed by Drs. Jhon Abreu, Jolynn Lloyd, Ludwin Moreno and colleagues, with an educational hima from [employer]. FORREST-7 Assessment Billing FORREST-7 Assessment Tool: FORREST-7 Assessment 15158 Review of Systems Const Details: Const Denies chills, Denies fatigue, Denies fever(s), Denies headache(s) and Denies weakness ENT Reports left ear pain Card Denies chest pain, Denies lightheadedness, Denies dyspnea and Denies other (Palpitations) Resp Denies cough, Denies dyspnea, Denies wheezing and Denies other ( shortness of breath) GI Denies abdominal pain, Denies melena, Denies hematochezia, Denies change in bowel habits, Denies dyspepsia and Denies nausea Denies hematuria and Denies dysuria Musc Reports as per HPI Skin/Breast Denies rash, Denies unusual bruising and Denies wounds Neuro Denies dizziness, Denies headache(s), Denies memory loss, Denies numbness, Denies Sensory deficit (Neuro), Denies tingling and Denies weakness Psych Reports anxiety, Reports depression, Denies memory loss Endo Denies cold intolerance, Denies fatigue, Denies heat intolerance, Denies polydipsia and Denies polyuria Aller/Immun Denies wheezing Physical exam (Primary Care) Vital Signs: Last Vital Signs Temp 98.2 F 08/02/24 13:21 Pulse 68 08/02/24 13:21 Resp 16 08/02/24 13:21 BP 124/60 08/02/24 13:21 Pulse Ox 96 08/02/24 13:21 Oxygen Delivery Method Room Air 08/02/24 13:21 BMI result Body Mass Index 35.5 Tobacco/Smoking Status: Tobacco use Status Tobacco use date assessed 08/02/24 08/02/24 13:24 Patient Tobacco Use Status Never used Tobacco 08/02/24 13:17 e-Cigarette/Vaping Use Never Used 08/02/24 13:17 PHQ-9: PHQ-9 Score PHQ-9: Total score 19 08/02/24 14:48 Depression Screening Interpretation: Positive Depression Screening Follow-up: Existing condition Thrive Assessment: Date of Thrive Assessment Date Thrive assessed 08/02/24 08/02/24 13:40 Currently or been in a relationship where the following occur: I choose not to answer Const Other: General: no acute distress and well developed Nutritional Appearance: well nourished Orientation/consciousness: patient oriented x3 [facility] Head: Yes normocephalic and Yes atraumatic. Slight erythema of the left ear canal. TMs normal Eyes General: appearance normal, both eyes and all related structures Pupils: Equal, round and reactive pupils present EOM: EOMs intact bilaterally Resp Effort & Inspection: normal respiratory effort Auscultation: clear to auscultation bilaterally Cardio Rate: regular rate Rhythm: regular rhythm Heart sounds: S1 normal heart sound present, S2 normal heart sound present, no gallops, no murmurs and no rubs GI Palpation (GI): No Abdominal aortic bruit present, Soft to palpation, nontender, No hepatosplenomegaly present and No Rebound tenderness present Auscultation: normal bowel sounds General: Yes no CVA tenderness Back/Spine/Pelvis Back: no CVA tenderness Cervical Spine: cervical ROM normal and No Cervical spine tenderness Thoracic/Lumbar Spine: thoraco-lumbar ROM normal, No pain with thoraco-lumbar ROM, No thoracic spinal tenderness and No lumbar spinal tenderness Extrem General: Yes normal to inspection, No edema and No calf tenderness. Limited ROM of both knees Skin General: warm and dry. Normal skin color. Normal skin turgor Neuro General: patient oriented x3 and no focal neuro deficit Cranial nerves: Yes Equal, round and reactive pupils present Cognition (Neuro): normal cognition Gait exam (Neuro): Wheelchair at baseline Sensory Exam: No Sensory deficit (Neuro) Psych Appearance: grossly normal Affect: normal affect Attitude: cooperative Thought process: Normal thought process present Coding Level of Care Code Est Pt Level 4 (41160) Complex EM visit Add On G2211 Diagnoses MDD (major depressive disorder) F32.9 FORREST (generalized anxiety disorder) F41.1 Insomnia G47.00 Osteoarthritis of both knees M17.0 Left ear pain H92.02 Additional Codes FORREST-7 Assessment Billing - FORREST-7 Assessment Tool: FORREST-7 Assessment 64021 ([id number]) Assessment & Plan Assessment & Plan (1) MDD (major depressive disorder): Code(s): F32.9 - Major depressive disorder, single episode, unspecified Category: Medical Plan: Continue to take Duloxetine and Buspirone as prescribed. Continue with current therapist sessions and proceed with psychiatrist consultation as planned. Will increase Buspirone to 15 mg three times daily. (2) FORREST (generalized anxiety disorder): Code(s): F41.1 - Generalized anxiety disorder Category: Medical Plan: Plan as above. (3) Insomnia: Code(s): G47.00 - Insomnia, unspecified Category: Medical Plan: Continue Trazodone at 150 mg at bedtime. Monitor effectiveness. (4) Osteoarthritis of both knees: Code(s): M17.0 - Bilateral primary osteoarthritis of knee Category: Medical Plan: Follow-up with the orthopedist for knee pain management. (5) Left ear pain: Code(s): H92.02 - Otalgia, left ear Category: Medical Plan: Prescribe Azithromycin Z-Hu) due to left ear tenderness. Plan I discussed with the patient the management of her multiple conditions, focusing on medication adherence and the continuation of psychotherapy. We reviewed the potential side effects of increasing Buspirone to 15 mg and agreed on a follow-up method to monitor any changes. I highlighted the importance of following up with her orthopedist to address knee pain. We decided on Azithromycin for her ear discomfort suspecting a non-bacterial etiology given no visible infection or wax. Continuation with the behavioral therapist and timely consultation with a psychiatrist were emphasized as crucial steps in her care plan. Medications: New azithromycin (Zithromax Z-Hu) For 250 mg dose pack: take 500 mg today (day 1), then 250 mg for 4 days (days 2-5) PO 6 tabs 0RF Changed From buspirone 15 mg PO BID 30 days 60 tabs 1RF To buspirone 15 mg PO TID 90 tabs 3RF 30 days Refilled cholecalciferol (vitamin D3) 50 mcg PO DAILY 90 caps 3RF 90 days acetaminophen ER 650 mg PO Q8H PRN 60 tabs 3RF pain Patient Instructions: - Take Azithromycin as prescribed for ear discomfort. - Continue current medications as directed. - Attend scheduled appointments with orthopedist, therapist, and psychiatrist. - Monitor for changes in symptoms and report any worsening. - Follow up in 3 months for anxiety, depression, and insomnia. - Engage in physical activities as advised for joint health. Patient was informed and verbally consented to the use of an ambient scribe for clinic note documentation during this visit.
[2024-08-02 13:21] VITALS: BP 124/60; PULSE 68; RESP 16; TEMP 36.8; O2SAT 96; BMI 35.5
== END 2024-08-02 14:06 | disposition home or self-care (01) ==
PROVIDERS: PCP Nurse Practitioner Family; Visit Provider Nurse Practitioner Family
DX: F32.9 Major depressive disorder, single episode, unspecified (principal); F41.1 Generalized anxiety disorder; G47.00 Insomnia, unspecified; M17.0 Bilateral primary osteoarthritis of knee; H92.02 Otalgia, left ear

== ENCOUNTER → 2024-08-02 12:50 | Outpatient (BNVA) | payer MEDICARE, MEDICAID, SELFPAY | PROVIDERS: PCP Nurse Practitioner Family; Visit Provider Nurse Practitioner Family | DX: F32.9 Major depressive disorder, single episode, unspecified (principal); F41.1 Generalized anxiety disorder; G47.00 Insomnia, unspecified; M17.0 Bilateral primary osteoarthritis of knee; H92.02 Otalgia, left ear | CPT/HCPCS: 96127; 99212 ==

== ENCOUNTER 2025-03-28 11:00 | Outpatient (AMB) | payer MEDICARE, MEDICAID, SELFPAY ==
--- NOTE | 2025-03-28 11:02 | MHC.PC.OV ---
Vital Signs 03/28/25 11:08 Height 5 ft 6 in Weight 180 lb BMI 29.0 BP 111/59 L Blood Pressure Location Rt brachial Position Sitting Respiration 16 Pulse 79 Pulse Source Pulse Oximeter Temp 98.3 F Temp Source Oral Pulse Oximetry (%) 96 Oxygen Delivery Method Room Air Intake Visit Reasons: anxiety, depression, insomnia Intake Note: patient here to follow up on anxiety, depression, and insomnia Theology Professor Required: Yes Theology Professor Name: refused w/daughter Information Interpreted: non-clinical & clinical Accompanied by: Daughter Is last menstrual period known: No Post menopausal: No Patient : No Allergies amoxicillin Allergy (Severe, Verified 03/28/25 11:19) Anaphylaxis Medication List - Last Reviewed 03/29/25 by Nadia Walker MA acetaminophen ER 650 mg PO Q8H PRN atorvastatin 20 mg PO DAILY 90 days azithromycin (Zithromax Z-Hu) For 250 mg dose pack: take 500 mg today (day 1), then 250 mg for 4 days (days 2-5) PO buspirone 15 mg PO TID 90 days cetirizine (Zyrtec) 10 mg PO DAILY cholecalciferol (vitamin D3) 50 mcg PO DAILY 90 days cyanocobalamin (vitamin B-12) 100 mcg PO DAILY diclofenac sodium 1% (Arthritis Pain (diclofenac)) 2 grams topical BID duloxetine 30 mg PO BID 30 days famotidine 40 mg PO DAILY 30 days gabapentin 600 mg PO TID hydrocortisone 0.5% 1 appl topical BID 7 days levothyroxine 125 mcg PO DAILY 3 months lorazepam (Ativan) 0.5 mg PO BID PRN simethicone (Gas Relief (simethicone)) 125 mg PO TID PRN 90 days trazodone 200 mg (2 x 100 mg) PO BEDTIME 90 days venlafaxine ER 37.5 mg PO DAILY Wegovy (semaglutide (weight loss)) 0.25 mg (0.5 mL) subcut QWEEK NS Tobacco use date assessed: 03/28/25 Fall risk assessment: No Falls in past year Last assessed Fall Risk: 03/28/25 Dental Screening Dental Screen Date: 03/28/25 Did you have a dental visit in the last 12 months?: Yes Did you have a dental problem in the last 6 months where you did not have access to dental care?: No Was dental information given to patient?: Patient has dentist HPI HPI Comments History of Present Illness Details 70-year-old Lithuanian speaking female, accompanied by her daughter, presents for anxiety, depression, and insomnia follow-up. She admits to taking her medications as prescribed without adverse reactions. She notes that she is always sad and anxious, and worries all the time. She has difficulty falling or staying asleep - sleeps an average of 3 hours; reports racing thoughts. She is followed by a therapist at [facility] weekly; awaiting to connect with a psychiatrist at [facility]. She took Mounaro 2.5mg SC weekly x 4 weeks (paid [id number]) 3 months ago. She has been making healthy dietary choices. She has lost 40 lb since her last visit in August 2024. Reports chronic bilateral knee pain. She was seen by Dr. Riky Tavarez, [facility] Medicine [facility] 2 weeks ago and was told she has severe arthritis of both knees; steroid injection recommended but has not received. She has a follow up appointment in May. She was prescribed venlafaxine 37.5 mg daily. She was escorted in a wheelchair, in and out of the office by her daughter. She ambulates with a walker for short distances and uses a wheelchair for long distances. Interpretation by the patient's daughter per patient's preference. [facility] Medical History Depression Surgical History H/O eye surgery History of thyroidectomy Social History (Updated 04/30/24 @ 08:49 by Ondina Roberts CMA) Household Members: Family Household Members Other:: daughter Housing: House Are you a primary child care center assistant director to a significant other at home: No Alcohol intake: never Patient Tobacco Use Status: Never used Tobacco e-Cigarette/Vaping Use: Never Used Second Hand Smoke Exposure: No service: No Current occupational status: disabled Current occupational exposures/hazards: No Cognitive needs: Yes (cane, wheelchair) Hearing needs: No Vision needs: Yes (glasses) Questionnaire PHQ-9 Over the last 2 weeks, how often have you been bothered by any of the following problems? 1. Little interest or pleasure in doing things: not at all 2. Feeling down, depressed, or hopeless: nearly every day 3. Trouble falling or staying asleep, or sleeping too much: nearly every day 4. Feeling tired or having little energy: nearly every day 5. Poor appetite or overeating: nearly every day 6. Feeling bad about yourself - or that you are a failure or have let yourself or your family down: nearly every day 7. Trouble concentrating on things, such as reading the newspaper or watching television: not at all 8. Moving or speaking so slowly that other people could have noticed. Or the opposite - being so fidgety or restless that you have been moving around a lot more than usual: not at all 9. Thoughts that you would be better off or of hurting yourself in some way: several days Total score: 16 Depression Screening Interpretation: Positive Depression Screening Follow-up: Existing condition and In treatment Depression Screening Done: Yes 17778 - PHQ-9 Billing: Yes Source: Developed by Drs. Jhon Abreu, Jolynn Lloyd, Ludwin Moreno and colleagues, with an educational hima from [employer]. Thrive Questionnaire Date Thrive assessed: 08/02/24 I am a: Parent/Caregiver What is your living situation today?: I have a steady place to live Within the past 12 months, did the food you bought not last and you didn't have the money to get more?: Never true Within the past 12 months, did you worry whether your food would run out before you got money to buy more?: Never true Do you have trouble paying for medicines?: No Do you have trouble getting transportation to medical appointments?: No Do you have trouble paying your heating and electricity bill?: No Do you have trouble taking care of your child, family member or friend?: No Do you have trouble with day-to-day activities such as bathing, preparing meals, shopping, managing finances, etc.?: No Are you currently unemployed and looking for a job?: No Are you interested in more education?: No Please select the resources that you would like help with: None Currently or been in a relationship where the following occur: I choose not to answer THRIVE Score: 0 AUDIT C Alcohol Use Questionnaire (AUDIT-C) 1. How often do you have a drink containing alcohol?: Never Total Score: 0 Score Reviewed/Action Taken: Yes FORREST-7 AMB Questionnaire FORREST-7 Date FORREST - 7 assessed: 03/28/25 Feeling nervous, anxious, or on edge: 1 = Several days Not being able to stop or control worryin = Not at all Worrying too much about different things: 1 = Several days Trouble relaxin = Nearly every day Being so restless that it is hard to sit still: 1 = Several days Becoming easily annoyed or irritable: 3 = Nearly every day Feeling afraid as if something awful might happen: 3 = Nearly every day Total FORREST-7 score (0-4 normal; 5-9 mild; 10-14 moderate; 15-21 severe): 12 Source: Developed by Drs. Jhon Abreu, Jolynn Lloyd, Ludwin Moreno and colleagues, with an educational hima from [employer]. FORREST-7 Assessment Billing FORREST-7 Assessment Tool: FORREST-7 Assessment 83780 Review of Systems Const Details: Const Denies chills, Denies fatigue, Denies fever(s), Denies headache(s) and Denies weakness ENT Denies dizziness and Denies headache(s) Card Denies chest pain, Denies lightheadedness, Denies dyspnea and Denies other (Palpitations) Resp Denies cough, Denies dyspnea, Denies wheezing and Denies other ( shortness of breath) GI Denies abdominal pain, Denies melena, Denies hematochezia, Denies change in bowel habits, Denies dyspepsia and Denies nausea Denies hematuria and Denies dysuria Musc Reports as per HPI Skin/Breast Denies rash, Denies unusual bruising and Denies wounds Neuro Reports abnormal gait, Denies dizziness, Denies headache(s), Denies memory loss, Denies numbness, Denies Sensory deficit (Neuro), Denies tingling and Denies weakness Psych Reports anxiety, Reports depression, Denies memory loss Endo Denies cold intolerance, Denies fatigue, Denies heat intolerance, Denies polydipsia and Denies polyuria Aller/Immun Denies wheezing Physical exam (Primary Care) Vital Signs: Last Vital Signs Temp 98.3 F 03/28/25 11:08 Pulse 79 03/28/25 11:08 Resp 16 03/28/25 11:08 BP 111/59 L 03/28/25 11:08 Pulse Ox 96 03/28/25 11:08 Oxygen Delivery Method Room Air 03/28/25 11:08 BMI result Body Mass Index 29.0 Tobacco/Smoking Status: Tobacco use Status Tobacco use date assessed 03/28/25 03/28/25 11:12 Patient Tobacco Use Status Never used Tobacco 03/28/25 11:12 e-Cigarette/Vaping Use Never Used 03/28/25 11:12 PHQ-9: PHQ-9 Score PHQ-9: Total score 16 03/29/25 08:15 Depression Screening Interpretation: Positive Depression Screening Follow-up: Existing condition and In treatment Thrive Assessment: Date of Thrive Assessment Date Thrive assessed 08/02/24 03/28/25 11:12 Currently or been in a relationship where the following occur: I choose not to answer Const Other: General: no acute distress and well developed Nutritional Appearance: well nourished Orientation/consciousness: patient oriented x3 HENMT Head: Yes normocephalic and Yes atraumatic Eyes General: appearance normal, both eyes and all related structures Pupils: Equal, round and reactive pupils present EOM: EOMs intact bilaterally Resp Effort & Inspection: normal respiratory effort Auscultation: clear to auscultation bilaterally Cardio Rate: regular rate Rhythm: regular rhythm Heart sounds: S1 normal heart sound present, S2 normal heart sound present, no gallops, no murmurs and no rubs GI Palpation (GI): No Abdominal aortic bruit present, Soft to palpation, nontender, No hepatosplenomegaly present and No Rebound tenderness present Auscultation: normal bowel sounds General: Yes no CVA tenderness Back/Spine/Pelvis Back: no CVA tenderness Cervical Spine: cervical ROM normal and No Cervical spine tenderness Thoracic/Lumbar Spine: thoraco-lumbar ROM normal, No pain with thoraco-lumbar ROM, No thoracic spinal tenderness and No lumbar spinal tenderness Extrem General: Yes normal to inspection, No edema and No calf tenderness Skin General: warm and dry. Normal skin color. Normal skin turgor Neuro General: patient oriented x3, no focal neuro deficit Cranial nerves: Yes Equal, round and reactive pupils present Cognition (Neuro): normal cognition Gait exam (Neuro): Not assessed Sensory Exam: No Sensory deficit (Neuro) Psych Appearance: grossly normal Affect: normal affect Attitude: cooperative Thought process: Normal thought process present Coding Level of Care Code Est Pt Level 4 (74201) Diagnoses MDD (major depressive disorder) F32.9 FORREST (generalized anxiety disorder) F41.1 Insomnia G47.00 Osteoarthritis of both knees M17.0 BMI 36.0-36.9,adult Z68.36 Laboratory tests ordered as part of a complete physical exam (CPE) Z00.00 Additional Codes FORREST-7 Assessment Billing - FORREST-7 Assessment Tool: FORREST-7 Assessment 18908 ([id number]) PHQ-9 - 91521 - PHQ-9 Billing: Yes ([id number]) Time Spent (min) 60 Assessment & Plan Assessment & Plan (1) MDD (major depressive disorder): Code(s): F32.9 - Major depressive disorder, single episode, unspecified Category: Medical Plan: She notes that she is always sad and anxious, and worries all the time. She has difficulty falling or staying asleep - sleeps an average of 3 hours; reports racing thoughts. She is followed by a therapist at [facility] weekly; awaiting to connect with a psychiatrist at [facility]. PHQ-9 and FORREST-7 scores revealed moderately severe depression and moderate anxiety respectively. She has passive SI. Denies plan. Denies HI or hallucinations. Will increase trazodone to 200 mg daily at bedtime. Ativan 0.5 mg daily as needed ordered for anxiety. Continue to take venlafaxine 37.5 mg daily, duloxetine 30 mg twice daily, and buspirone 15 mg 3 times daily. Continue follow-up with therapist as planned. Perform lab work and follow-up for an extended physical exam as scheduled in May. Return sooner with symptoms or concerns. Verbalized understanding and agreed with the plan. (2) FORREST (generalized anxiety disorder): Code(s): F41.1 - Generalized anxiety disorder Category: Medical Plan: Plan as above. (3) Insomnia: Code(s): G47.00 - Insomnia, unspecified Category: Medical Plan: Plan as above. (4) Osteoarthritis of both knees: Code(s): M17.0 - Bilateral primary osteoarthritis of knee Category: Medical Plan: Reports chronic bilateral knee pain. She was seen by Dr. Riky Tavarez, Physical Medicine and Rehabilitation 2 weeks ago and was told she has severe arthritis of both knees; steroid injection recommended but has not received. She has a follow up appointment in May. No overt knee injury or trauma noted. Continue current treatment regimen. Continue to use walker and wheelchair for ambulation. Follow-up with Physical Medicine and Rehabilitation as planned. Verbalized understanding and agreed with treatment plan. (5) BMI 36.0-36.9,adult: Code(s): Z68.36 - Body mass index [BMI] 36.0-36.9, adult Category: Medical Plan: She took Mounaro 2.5mg SC weekly x 4 weeks (paid [id number]) 3 months ago. She has been making healthy dietary choices. She has lost 40 lb since her last visit in August 2024. She currently weighs 180 lb, BMI is 29.0. Healthy diet and routine exercise encouraged. Follow-up as needed. Verbalized understanding and agreed with the plan. (6) Laboratory tests ordered as part of a complete physical exam (CPE): Code(s): Z.00 - Encounter for general adult medical examination without abnormal findings Category: Medical Plan: Fasting labs ordered as part of a complete physical exam. Advised to fast for at least 10 hours before getting labs drawn. May drink water Verbalized understanding and agreed with treatment plan. Plan Total time for this visit was 60 minutes. This include 45 minutes with patient assessing/addressing/managing, and 15 minutes reviewing, coordinating plan of care, and documenting. Orders: Orders Comprehensive [place]. Panel Fast 03/28/25. - Encounter for general adult medical examination without abnormal findings Lipid Panel 03/28/25 - Encounter for general adult medical examination without abnormal findings UA CC w/rflx Micro + Cult 03/28/25 - Encounter for general adult medical examination without abnormal findings Vitamin D 25-OH Total 03/28/25. - Encounter for general adult medical examination without abnormal findings Complete Blood Count Auto Diff 03/28/25 - Encounter for general adult medical examination without abnormal findings Microalbumin, Random (w Creat) 03/28/25. - Encounter for general adult medical examination without abnormal findings TSH reflex Free T4 03/28/25. - Encounter for general adult medical examination without abnormal findings Medications: New lorazepam (Ativan) 0.5 mg PO BID PRN 14 tabs 0RF anxiety trazodone 200 mg (2 x 100 mg) PO BEDTIME 180 tabs 1RF sleep 90 days
[2025-03-28 11:08] VITALS: BP 111/59; PULSE 79; RESP 16; TEMP 36.8; O2SAT 96; BMI 29.0
--- OUTSIDE RECORDS SUMMARY | 2025-03-28 12:21 | XMS_ITS | Clinical Summary ---
Author Organization [facility] Address [address] [place] [address] Care Team Providers Care Channel Marketing Coordinator Name Role Phone Zheng Saravia INTERNATIONAL MARKETING SPECIALIST-C Primary Care Provider [phone] Source Comments PLEASE NOTE, if this patient is a minor, it may be UNLAWFUL to discuss sensitive information that is contained in these records (such as FAMILY PLANNING, MENTAL HEALTH or SUBSTANCE ABUSE) with the minor patient's parent or other person without the patient's specific authorization.[facility] Allergies Active Allergy Reactions Criticality Noted Date Comments Amoxicillin Rash,Itching 12/27/2014 Patient comes in as a walk-in on 12/27/14 with c/o rash all over body. informed. Medications famotidine (PEPCID) 40 mg tabletIndication s:Chronic GERD TAKE 1 TABLET BY MOUTH ONCE DAILY NEEDED FOR HEARTBURN 90 Tablet 1 10/07/19 22 Active hydrOXYzine pamoate (VISTARIL) 25 mg capsuleIndicatio ns:Insomnia, unspecified type TAKE 1 TO 2 CAPSULES BY MOUTH NIGHTLY AT BEDTIME NEEDED FOR ANXIETY OR SLEEP 60 Capsule 2 12/08/19 22 Active cholecalciferol, vitamin D3, 50 mcg (2,000 unit) capsuleIndicatio ns:Osteopenia of neck of femur, unspecified laterality TAKE 1 CAPSULE BY MOUTH EVERY DAY 30 Capsule 5 12/22/19 22 Active cyanocobalamin, vitamin B-12, (CYANOCOBALAMIN) 100 mcg tabletIndication s:Neuropathy involving both lower extremities TAKE 1 TABLET BY MOUTH EVERY DAY 90 Tablet 1 12/25/19 22 Active amitriptyline (ELAVIL) 25 mg tabletIndication s:Tinnitus of both ears TAKE 1 TABLET BY MOUTH EVERY DAY AT BEDTIME 30 Tablet 2 01/15/20 22 Active diclofenac sodium (VOLTAREN) 1 % gelIndications:A rthritis of both knees Apply topically 2 (two) times daily Apply to most painful area. 100 g 2 01/22/20 22 Active gabapentin (NEURONTIN) 600 mg tabletIndication s:Arthritis of both knees Take 1 Tablet by mouth every evening For chronic pain 30 Tablet 2 01/22/20 22 Active levothyroxine 25 mcg tabletIndication s:Hypothyroidism , postsurgical Take 1 PO on Saturdays and Sundays ONLY in addition to levothyroxine 125mcg daily. 8 Tablet 2 01/23/20 22 Active levothyroxine 125 mcg tabletIndication s:Hypothyroidism , postsurgical TAKE 1 TABLET BY MOUTH EVERY DAY BEFORE BREAKFAST 30 Tablet 2 02/04/20 22 Active acetaminophen (TYLENOL 8 HOUR) 650 mg CR tabletIndication s:Arthritis of both knees Take 1 Tablet by mouth every 8 (eight) hours as needed for pain 90 Tablet 2 03/08/20 22 Active atorvastatin (LIPITOR) 20 mg tabletIndication s:Dyslipidemia TAKE 1 TABLET BY MOUTH EVERY DAY AT BEDTIME 90 Tablet 1 03/15/20 22 Active escitalopram (LEXAPRO) 10 mg tablet TAKE 1 TABLET BY MOUTH EVERY DAY 90 Tablet 1 06/11/20 22 Active Active Problems Problem Noted Date Diagnosed Date BMI 36.0-36.9,adult 01/22/2022 Tinnitus of both ears 02/17/2021 Insomnia 02/17/2021 Osteopenia of neck of femur 12/13/2019 Overview (12/13/2019): [facility] Dexa- Sep 28 2019 This yields a T-score of -1.0 and a Z-score of -0.3 and there is therefore no evidence of osteoporosis or osteopenia here. However, the T-score of the right femoral neck is -2.1 and that of the left femoral neck is -1.5 which is diagnostic of osteopenia. IMPRESSION:1. Osteopenia. Current moderate episode of major depressive disorder without prior episode ([facility]) 01/22/2018 H/O renal calculi 12/22/2017 Overview (12/22/2017): 12/18/17 Renal U/S at [facility] shows normal renal U/S. Chronic GERD 07/04/2017 Colonoscopy refused 04/09/2016 Tremor, essential 02/13/2015 Arthritis of both knees 11/23/2014 Hypothyroidism, postsurgical 09/14/2014 Overview (09/14/2014): Pt had thyroidectomy on Oct 2013 On supplement levothyroxine Biopsy report: non malignant Dyslipidemia 09/14/2014 Overview (03/02/2017): 10 year ASCVD risk = 5.4 % 03/02/17 will tx with diet, exercise, weight loss Immunizations Immunization Administration Dates Next Due Flu, Multi Dose 0.5 ML 06/26/2020 Flu, Preservative Free 07/19/2018 Hep B, Adult/Adol ([id number]/RECOMBIVAX-ADULT) 11/23/2014,10/19/2014 INFLUENZA, SEASONAL, INJECTABLE 05/18/2019,06/02 INFLUENZA, SEASONAL, INJECTA BLE, PRESERVATIVE FREE 05/19/2017,07/18/2016,07/18/2015 Influenza (FLUZONE), high-do se, trivalent, PF 05/18/2019 MMR (MMR II/Priorix) 11/23/2014(Deferred : Out of Stock),09/14/2014 [employer] COVID VACCINE, PURPLE CAP, 12+ 04/05/2021 ,03/15/2021 PNEUMOCOCCAL CONJUGATE PCV 13 09/13/2019 PNEUMOCOCCAL POLYSACCHARIDE PPV23 (Pneumovax 23) 02/16/2021 TDAP 09/14/2014 Td (adult), 5 Lf tetanus tox oid (Tenivac), preservative free 10/19/2014 ZOSTER VACCINE, RECOMBINANT (SHINGRIX) 2,09/13/2019 Family History Relation Name Status Comments Father Mother Social History Tobacco Use Types Packs/Day Years Used Date Smoking Tobacco: Never Smokeless Tobacco: Never Alcohol Use Standard Drinks/Week Comments No 0 (1 standard drink = 0.6 oz pur e alcohol) Social Connections Answer Date Recorded Connectedness 0 02/23/2021 Financial Resource Strain Answer Date R ecorded Financial Resource Strain 0 2020 Stress Answer Date Recorded Stress 0 04/25/2019 Physical Activity Answer Date Recorded Physical Activity 0 02/23/2021 Food Insecurity Answer Date Recorded Food 0 02/23/2021 Transportation Needs Answer Date Record ed Transportation 0 02/23/2021 Housing Stability Answer Date Recorded Housing 0 02/23/2021 Safety and Environment Answer Date Hill rded Safety 0 02/23/2021 Utilities Answer Date Recorded Utilities 0 02/23/2021 Employment Answer Date Recorded Stress 0 02/23/2021 Comments No Sex and Gender Information Value Date Recorded Sex Assigned at Female 07/04/2017 6:36 AM PDT Legal Sex Female 10:01 AM PST Gender Identity Female 07/04/2017 6:36 AM PDT Sexual Orientation Straight 07/04/2017 6: 36 AM PDT Last Filed Vital Signs Vital Sign Reading Time Taken Comments Blood Pressure 120/82 03/08/2022 2:30 PM EDT Pulse 72 01/21/2022 4:34 PM EDT Temperature 36.6 C (97.8 F) 01/21/2022 4:34 PM EDT Respiratory Rate 18 03/08/2022 2:30 PM EDT Oxygen Saturation 99% 03/08/2022 2:30 PM EDT Inhaled Oxygen Concentration - - Weight 100.8 kg (222 lb 4.8 oz) 03/08/2022 2:30 PM EDT Height 165.1 cm (5' 5 ) 03/08/2022 2:30 PM EDT Body Mass Index 36.99 03/08/2022 2:30 PM EDT Plan of Treatment Health Maintenance Due Date Last Done Comments Tobacco Screening 1955 Medicare Annual Wellness Visit 02/04/1972 CT Colonography 1999 Colonoscopy 1999 Colorectal Cancer Screening 1999 FIT/gFOBT 1999 Fecal DNA 1999 Flexible Sigmoidoscopy 1999 Falls Prevention 2019 Annual Wellness (Adult): Indicated (All Coverage) 07/29/2019 07/29/2018, 07/28/2018, 07/04/2017, Additional history exists Breast Cancer Screening (Mammogram) 10/08/2020 10/08/2018, 01/22/2016, 01/05/2015 (Managed by Outside Provider) Lipid Screening 02/16/2022 02/16/2021, 10/, 07/29/2018, Additional history exists Depression Monitoring 04/19/2022 01/17/2022 , 09/13/2019, 12/30/2018, Additional history exists Diabetes Screening 01/21/2023 01/21/2022, 0 01/21/2022, 02/16/2021, Additional history exists TSH Monitoring 01/21/2023 01/21/2022, 12/31, 01/21/2022, Additional history exists Hypertension Screening (#1) 03/08/2023 [id number] ( season) 2024 021, 03/15/2021 Alcohol and Drug Screen 09/01/2024 01/18/20 22, 06/30/2019, 11/20/2017, Additional history exists Imm-DTaP/Tdap/Td (3 - Td or Tdap) 10/19/2024 015, 09/14/2014 Imm-Influenza (#1) 2025 06/26/2020, 0 05/18/2019, 05/18/2019, Additional history exists Imm-Hepatitis B Discontinued 11/23/2014, 10/19/2014 Hepatitis C Screening Completed 07/29/2018 Bone Density Screening Completed 09/28/2020 Imm-Pneumococcal 50+ Completed 02/16/2021, 09/13/19 Imm-Zoster, Recombinant Completed 03/11/2022, 09/13 Procedures Procedure Name Priority Date/Time Associated Diagnosis Comments TSH W/RFLX FREE T4 Routine 01/21/2022 3: 51 PM EDT Annual physical exam BASIC METABOLIC PANEL CALCIUM TOTAL Routine 01/21/2022 3:51 PM EDT Annual physical exam LIPID PANEL Routine 02/16/2021 3:20 PM EDT Class 2 severe obesity due to excess calories with serious comorbidity and body mass index (BMI) of 35.0 to 35.9 in adult ([facility]) Annual physical exam MAMMOGRAM, ABSTRACTED DISCRETE Routine 10/08/2018 8:28 AM EST HEPATITIS A,B,C PANEL Routine 07/29/2018 10:30 AM EST Need for hepatitis C screening test from Last 3 Months or Most Recently Relevant to Health Maintenance Results * (ABNORMAL) TSH W/RFLX FREE T4 (01/21/2022 3:51 PM EDT) TSH W/REFLEX TO FT4 7.79(H) 0.40 - 4.50 mIU/L [facility] Blood Blood / Unknown 01/21/2022 3 :51 PM EDT 01/21/2022 3:51 PM EDT Naima Hollis PA-C LAB - BLOOD DRAW Edited Result - Final [facility] [address] [address], [facility] [address] [place] [address],[place] [address] * BASIC METABOLIC PANEL CALCIUM TOTAL (01/21/2022 3:51 PM EDT) GLUCOSE 87 65 - 99 mg/dL [facility] Comment: Fasting reference interval UREA NITROGEN (BUN) 18 7 - 25 mg/dL [facility] CREATININE (blood) 0.84 0.50 - 0.99 mg/dL [facility] Comment: For patients >49 years of age, the reference limit for Creatinine is approximately 13% higher for people identified as -Ethiopian. GFR ESTIMATED 72 > OR = 60 mL/min/1 .73m2 [facility] EGFR 83 > OR = 60 mL/min/1 .73m2 [facility] BUN/CREATININE RATIO NOT APPLICABLE 6 - 22 [facility] SODIUM 137 135 - 146 mmol/L [facility] POTASSIUM 4.7 3.5 - 5.3 mmol/L [facility] CHLORIDE 103 98 - 110 mmol/L [facility] CARBON DIOXIDE 27 20 - 32 mmol/L [facility] CALCIUM 9.6 8.6 - 10.4 mg/dL [facility] Blood Blood / Unknown 01/21/2022 3 :51 PM EDT 01/21/2022 3:51 PM EDT Naima Hollis PA-C LAB - BLOOD DRAW Edited Result - Final [facility] [address] [address], [employer] [facility] [address],[facility] [place] [address] * (ABNORMAL) LIPID PANEL (02/16/2021 3:20 PM EDT) CHOLESTEROL, TOTAL 146 <200 mg/dL [employer] [facility] HDL CHOLESTEROL 49(L) > OR = 50 mg/dL [employer] [facility] TRIGLYCERIDES 112 <150 mg/dL [employer] [facility] LDL-CHOLESTEROL 77 99 mg/dL (calc) [employer] [facility] Comment: Reference range: <100 Desirable range <100 mg/dL for primary prevention; <70 mg/dL for patients with CHD or diabetic patients with > or = 2 CHD risk factors. LDL-C is now calculated using the Ephraim calculation, which is a validated novel method providing better accuracy than the Friedewald equation in the estimation of LDL-C. Kenneth JONES et al. KIYA. 2013;310(19): 1550-6396 (http://education.ClaytonSt[employer].com/faq/GNY798) CHOL/HDLC RATIO 3.0 <5.0 (calc) [employer] [facility] NON-HDL CHOLESTEROL 97 <130 mg/dL (calc) [employer] [facility] Comment: For patients with diabetes plus 1 major ASCVD risk factor, treating to a non-HDL-C goal of <100 mg/dL (LDL-C of <70 mg/dL) is considered a therapeutic option. Blood Blood / Unknown 02/16/2021 3 :20 PM EDT 02/16/2021 3:20 PM EDT us Naima Hollis PA-C LAB - BLOOD DRAW Edited Result - Final [facility] [address] [address], [employer] [facility] [address],[facility] [place] [address] * MAMMOGRAM, ABSTRACTED (10/08/2018 8:28 AM EST) MAMMOGRAM NEGATIVE NEGATIVE Anatomical Region Laterality Modality Other Impressions 10/08/2018 8:28 AM EST No mammogramic evidence of malignancy BIRADS - 1 negative Repeat 1 year Provider Rosalia ASHLEY MAMMO Final Result * (ABNORMAL) HEPATITIS A,B,C PANEL (07/29/2018 10:30 AM EST) HEPATITIS B SURFACE ANTIBODY POSITIVE(A) NEGATIVE [facility] HEPATITIS B SURFACE ANTIGEN NEGATIVE NEGATIVE [facility] Comment: Over the counter supplements containing high doses of biotin may interfere with this assay. If interference is suspected, patients shoud be retested after refraining from biotin supplements for 72 hours. HEPATITIS C VIRUS DIAGNOSTIC NEGATIVE NEGATIVE [facility] HEPATITIS A ANTIBODY TOTAL POSITIVE(A) NEGATIVE [facility] Comment: Over the counter supplements containing high doses of biotin may interfere with this assay. If interference is suspected, patients shoud be retested after refraining from biotin supplements for 72 hours. HEPATITIS B CORE ANTIBODY NEGATIVE NEGATIVE [facility] Blood specimen (specimen) Blood / Unknown 07/29/2018 10:30 AM EST 07/29/2018 10:39 AM EST Narrative [facility] - 07/29/2018 1:34 PM EST [employer], [place] [address] Bead Machine Operator - Annie Simental MD PT ID [id number] ORD# [id number] Lisa Montgomery PA-C LAB - BLOOD DRAW [place] [address], from Last 3 Months or Most Recently Relevant to Health Maintenance Insurance [place] - [place] Care Teams Channel Marketing Coordinator Relationship Specialty Start Date End Date Zheng Saravia FNP-C [address] [place] [address] PCP - General Internal Medicine 09/05/22
== END 2025-03-28 14:44 | disposition home or self-care (01) ==
LOC: HO.HMCFM 11:01
PROVIDERS: PCP Nurse Practitioner Family; Visit Provider Nurse Practitioner Family
DX: F32.9 Major depressive disorder, single episode, unspecified (principal); F41.1 Generalized anxiety disorder; G47.00 Insomnia, unspecified; M17.0 Bilateral primary osteoarthritis of knee; Z68.36 Body mass index [BMI] 36.0-36.9, adult; Z00.00 Encounter for general adult medical examination without abnormal findings

== ENCOUNTER 2025-03-28 11:46 | Outpatient (REF) | payer MEDICARE, MEDICAID, SELFPAY ==
[2025-03-28 15:00] LABS: MANUAL DIFF FLAG NO
[2025-03-28 15:01] LABS: Hematocrit 41.6 % (37.0-47.0); Hemoglobin 14.1 g/dl (12.0-16.0); Imm Gran Abs Auto 0.01 X10*3/uL (0.00-0.03); Imm Gran Pct Auto 0.2 % (0.0-0.4); Lymphocytes Absolute Auto 2.3 X10*3/uL (1.2-4.9); Mean Corpuscular HGB Conc 33.9 g/dl (31.0-35.0); Mean Corpuscular Hemoglobin 31.2 pg (27.0-33.0); Mean Corpuscular Volume 92.0 fL (80.0-98.0); NRBC Abs Auto 0.000 X10*3/uL (0.0-0.012); NRBC Pct Auto 0.0 /100WBC (0.0-0.2); Platelet Count 196 X10*3/uL (160-400); Red Blood Count 4.52 X10*6/uL (4.20-5.50); White Blood Count 6.3 X10*3/uL (4.8-10.8)
[2025-03-28 15:10] LABS: Appearance Urine Clear; Glucose Urine UA Negative (Negative); PH 5.5 (5.0-9.0); Specific Gravity - Urine 1.020 (1.005-1.025); UMIC TRIGGER UACC YES
[2025-03-28 15:27] LABS: UACC Culture Trigger YES
[2025-03-28 15:31] LABS: Alanine Aminotransferase 30 U/L (0-31); Albumin Level 4.4 g/dL (3.5-5.0); Alkaline Phosphatase 55 U/L (39-117); Anion Gap 13 (12-20); Aspartate Amino Transferase 29 U/L (5-31); Blood Urea Nitrogen 13 mg/dL (9-16); Calcium 9.1 mg/dL (8.4-10.2); Carbon Dioxide 27 mmol/L (22-29); Chloride 106 mmol/L (96-108); Cholesterol 147 mg/dL (<200); Estimated Glomerular Filt Rate > 60; HDL Cholesterol 48 mg/dL (>40); Potassium 4.2 mmol/L (3.3-5.1); Sodium 142 mmol/L (135-145); Total Protein 7.1 g/dL (6.5-8.0); Triglycerides 92 mg/dL (<150)
[2025-03-28 15:48] LABS: Microalbum/Creatinine Ratio Ur 6.8 ug/mg cr (<30)
== END 2025-03-28 11:47 | disposition home or self-care (01) ==
LOC: HO.WFDLDS 11:46
PROVIDERS: Visit Provider Nurse Practitioner Family
DX: Z00.00 Encounter for general adult medical examination without abnormal findings (principal); F32.9 Major depressive disorder, single episode, unspecified; F41.1 Generalized anxiety disorder; G47.00 Insomnia, unspecified; M17.0 Bilateral primary osteoarthritis of knee; Z13.31 Encounter for screening for depression; Z13.39 Encounter for screening examination for other mental health and behavioral disorders
CPT/HCPCS: 36415; 80053; 80061; 81001; 81003; 82043; 82306; 82570; 84443; 85025; 87086; 96127; 99212

== ENCOUNTER 2025-05-06 07:53 | Outpatient (AMB) | payer MEDICARE, MEDICAID, SELFPAY ==
--- NOTE | 2025-05-06 07:57 | MHC.PC.OV ---
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 Agent Required: No Accompanied by: Daughter Is last menstrual period known: No Post menopausal: No Patient : No Allergies amoxicillin Allergy (Severe, Verified 05/06/25 08:20) Anaphylaxis Medication List - Last Reconciled 05/06/25 by Sera Fox CNP acetaminophen ER 650 mg PO Q8H PRN atorvastatin 20 mg PO DAILY 90 days cetirizine (Zyrtec) 10 mg PO DAILY cholecalciferol (vitamin D3) 50 mcg PO DAILY 90 days cyanocobalamin (vitamin B-12) 100 mcg PO DAILY diclofenac sodium 1% (Arthritis Pain (diclofenac)) 2 grams topical BID duloxetine 30 mg PO BID 30 days famotidine 40 mg PO DAILY 30 days gabapentin 600 mg PO TID hydrocortisone 0.5% 1 appl topical BID 7 days levothyroxine 125 mcg PO DAILY 3 months lorazepam (Ativan) 0.5 mg PO BID PRN simethicone (Gas Relief (simethicone)) 125 mg PO TID PRN 90 days trazodone 200 mg (2 x 100 mg) PO BEDTIME 90 days venlafaxine ER 37.5 mg PO DAILY Tobacco use date assessed: 05/06/25 Fall risk assessment: No Falls in past year Last assessed Fall Risk: 05/06/25 Dental Screening Dental Screen Date: 05/06/25 Did you have a dental visit in the last 12 months?: No Did you have a dental problem in the last 6 months where you did not have access to dental care?: No Was dental information given to patient?: Patient has dentist HPI HPI Comments History of Present Illness Details 70-year-old Turkmen speaking female, accompanied by her daughter, presents for an extended physical exam. She notes that she has been taking anxiety her medications as prescribed without adverse reactions. She notes that she is always anxious and depressed. She reports severe anxiety and depression. She thinks about but denies plan of committing suicide. She denies HI/AVH. Her daughter escorted her in and out of the office in a wheelchair. Acute issue(s) - None Past Medical History - MDD, FORREST, chronic generalized pain, hypothyroidism secondary to thyroidectomy, vitamin-D deficiency, hyperlipidemia, presbyopia Social History - Nonsmoker. Does not vape. Drinks 2-3 beers twice monthly. Denies recreational drug use - Has been making healthy dietary choices. Exercise/stretch at times. Generally sleep well Health maintenance - Last eye exam was with [facility] in 01/2025. Encouraged to sign a release for her PCP to obtain her ophthalmology record - Last dental visit was 3 years ago; encouraged to schedule an appointment with his dentist for routine dental care - Last Tdap was in 09/14/2014; receives Tdap today - She is up-to-date on the flu vaccine - She is up-to-date on the shingles and pneumonia vaccines - Last pap smear test was with [facility] a year ago: Normal. Will obtain record for review - Last mammogram was with [facility] 3 years ago: normal. Mammogram ordered - Last colonoscopy was with [facility] 3 years ago: Normal. Will request record for review - Last dexa scan was within the last 2 years with [facility]. Will obtain record for review Specialists - Ortho - Dr. Riky Bennett, [facility] - Therapist via [facility] 3 times weekly Interpretation by the patient's daughter per patient's preference. [facility] Medical History Depression Surgical History H/O eye surgery History of thyroidectomy Social History Household Members: Family Household Members Other:: daughter Housing: House Are you a primary career services manager to a significant other at home: No 75 years or older and lives alone: No Alcohol intake: never Patient Tobacco Use Status: Never used Tobacco e-Cigarette/Vaping Use: Never Used Second Hand Smoke Exposure: No service: No Current occupational status: disabled Current occupational exposures/hazards: No Cognitive needs: Yes (cane, wheelchair) Hearing needs: No Vision needs: Yes (glasses) Questionnaire PHQ-9 Over the last 2 weeks, how often have you been bothered by any of the following problems? 1. Little interest or pleasure in doing things: not at all 2. Feeling down, depressed, or hopeless: more than half the days 3. Trouble falling or staying asleep, or sleeping too much: not at all 4. Feeling tired or having little energy: nearly every day 5. Poor appetite or overeating: not at all 6. Feeling bad about yourself - or that you are a failure or have let yourself or your family down: nearly every day 7. Trouble concentrating on things, such as reading the newspaper or watching television: nearly every day 8. Moving or speaking so slowly that other people could have noticed. Or the opposite - being so fidgety or restless that you have been moving around a lot more than usual: more than half the days 9. Thoughts that you would be better off or of hurting yourself in some way: nearly every day Total score: 16 Depression Screening Interpretation: Positive Depression Screening Follow-up: Existing condition, In treatment and Change in Medication Depression Screening Done: Yes 18938 - PHQ-9 Billing: Yes Source: Developed by Drs. Jhon Abreu, Jolynn Lloyd, Ludwin Moreno and colleagues, with an educational hima from [employer]. Thrive Questionnaire Date Thrive assessed: 05/06/25 I am a: Parent/Caregiver What is your living situation today?: I have a steady place to live Within the past 12 months, did the food you bought not last and you didn't have the money to get more?: Never true Within the past 12 months, did you worry whether your food would run out before you got money to buy more?: Never true Do you have trouble paying for medicines?: No Do you have trouble getting transportation to medical appointments?: No Do you have trouble paying your heating and electricity bill?: No Do you have trouble taking care of your child, family member or friend?: No Do you have trouble with day-to-day activities such as bathing, preparing meals, shopping, managing finances, etc.?: No Are you currently unemployed and looking for a job?: No Are you interested in more education?: No Please select the resources that you would like help with: None Currently or been in a relationship where the following occur: I choose not to answer THRIVE Score: 0 AUDIT C Alcohol Use Questionnaire (AUDIT-C) 1. How often do you have a drink containing alcohol?: Never 3. How often do you have six or more drinks on one occasion?: Never Total Score: 0 Score Reviewed/Action Taken: Yes FORREST-7 AMB Questionnaire FORREST-7 Date FORREST - 7 assessed: 05/06/25 Feeling nervous, anxious, or on edge: 3 = Nearly every day Not being able to stop or control worryin = Nearly every day Worrying too much about different things: 3 = Nearly every day Trouble relaxin = More than half the days Being so restless that it is hard to sit still: 2 = More than half the days Becoming easily annoyed or irritable: 2 = More than half the days Feeling afraid as if something awful might happen: 3 = Nearly every day Total FORREST-7 score (0-4 normal; 5-9 mild; 10-14 moderate; 15-21 severe): 18 Source: Developed by Drs. Jhon Abreu, Jolynn Lloyd, Ludwin Moreno and colleagues, with an educational hima from [employer]. FORREST-7 Assessment Billing FORREST-7 Assessment Tool: FORREST-7 Assessment 92569 Review of Systems Const Details: Denies chills, Denies fatigue, Denies fever(s), Denies headache(s) and Denies weakness HEENT Denies change in vision, Denies dizziness, Denies headache(s), Denies hearing loss, Denies nasal congestion, Denies sinus pain, Denies sinus pressure and Denies sore throat Card Denies chest pain, Denies lightheadedness, Denies dyspnea and Denies other (palpitations) Resp Denies cough, Denies dyspnea and Denies wheezing GI Denies abdominal pain, Denies melena, Denies hematochezia, Denies change in bowel habits, Denies dyspepsia and Denies nausea Denies hematuria and Denies dysuria Musc Reports bila knee pain, Reports abnormal gait, Denies numbness and Denies tingling Skin/Breast Denies rash, Denies unusual bruising and Denies wounds Neuro Reports abnormal gait, Denies dizziness, Denies headache(s), Denies memory loss, Denies numbness, Denies Sensory deficit (Neuro), Denies tingling and Denies weakness Psych Reports anxiety, Reports depression and Denies memory loss Endo Denies cold intolerance, Denies fatigue, Denies heat intolerance, Denies polydipsia and Denies polyuria David/Lymph Denies easy bleeding and Denies easy bruising Aller/Immun Denies wheezing Physical exam (Primary Care) Vital Signs: Last Vital Signs Temp 97.4 F 05/06/25 08:10 Pulse 73 05/06/25 08:10 Resp 16 05/06/25 08:10 BP 132/60 05/06/25 08:10 Pulse Ox 97 05/06/25 08:10 Oxygen Delivery Method Room Air 05/06/25 08:10 BMI result Body Mass Index 30.3 Tobacco/Smoking Status: Tobacco use Status Tobacco use date assessed 05/06/25 05/06/25 08:13 Patient Tobacco Use Status Never used Tobacco 05/06/25 07:59 e-Cigarette/Vaping Use Never Used 05/06/25 07:59 PHQ-9: PHQ-9 Score PHQ-9: Total score 16 05/09/25 11:35 Depression Screening Interpretation: Positive Depression Screening Follow-up: Existing condition, In treatment and Change in Medication Thrive Assessment: Date of Thrive Assessment Date Thrive assessed 05/06/25 05/06/25 08:15 Currently or been in a relationship where the following occur: I choose not to answer Const Other: General: no acute distress, well developed, alert and awake Nutritional Appearance: well nourished Orientation/consciousness: patient oriented x3 HENMT Head: Yes normocephalic and Yes atraumatic Ears: hearing grossly normal bilaterally and TM's normal bilaterally General nose exam: Normal external nose present and Normal nares present Mouth: Normal oral and palatal mucosa present and moist mucous membranes Teeth and gingiva: dentition normal Throat: Yes oropharynx normal Eyes Pupils: Equal, round and reactive pupils present and Pupil accommodation reflex normal EOM: EOMs intact bilaterally Neck Neck: Yes normal visual inspection, Yes no lymphadenopathy and Yes trachea midline Thyroid: Thyroid normal Carotids: no bruits Lymphatic: no lymphadenopathy noted Chest Chest palpation & inspection: normal inspection of the chest Resp Effort & Inspection: normal respiratory effort Auscultation: clear to auscultation bilaterally Cardio Rate: regular rate Rhythm: regular rhythm Heart sounds: S1 normal heart sound present, S2 normal heart sound present, no gallops, no murmurs and no rubs Bruits: no abdominal aortic bruits and no carotid bruits GI Palpation (GI): No Abdominal aortic bruit present, Soft to palpation, nontender, No hepatosplenomegaly present and No Rebound tenderness present Auscultation: normal bowel sounds General: Yes no CVA tenderness Back/Spine/Pelvis Back: no CVA tenderness Cervical Spine: cervical ROM normal and No Cervical spine tenderness Thoracic/Lumbar Spine: thoraco-lumbar ROM normal, No pain with thoraco-lumbar ROM, No thoracic spinal tenderness and No lumbar spinal tenderness Skin General: warm and dry. Normal skin color. Normal skin turgor Lesions: no lesions Rashes: no rashes Trauma: no lacerations or abrasions Wounds: no wounds Nails: normal Neuro General: patient oriented x3, gait not assessed and CN's II-XI intact bilaterally Cranial nerves: Yes Equal, round and reactive pupils present Cognition (Neuro): normal cognition Gait exam (Neuro): Not assessed Motor exam (neuro): 5/5 motor strength to BLE, 3/5 motor strength to BLE Sensory Exam: No Sensory deficit (Neuro) Deep tendon reflexes (DTR's): Right patellar reflex intensity grade: 2+ and Left patellar reflex intensity grade: 2+ Extrem General: Yes normal to inspection, No edema and No calf tenderness Psych Appearance: grossly normal Affect: Flat Attitude: cooperative Thought process: Chronic passive SI Immunizations Boostrix Tdap 2.5 Lf unit-8 mcg-5 Lf/0.5 mL intramuscular syringe Performing Provider: Sera Fox CNP Performing Location: [facility] [place] [facility] Administered by: Sp Matamoros RN on 05/06/25 08:55 Dose Route Admin Location Dispensed Lot Number Expiration Date [facility] [employer]ne[employer] 0.5 mL IM Right Deltoid 0.5 mL [id number] 06/21/27 37814-528-26 [employer] Total Dispensed Waste 0.5 mL 0 % VIS Given Date VIS Provided VIS Publication Date 05/06/25 Single Vaccine 21 Eligibility Eligibility Date Funding Source Not [facility] Eligible 05/06/25 Private Coding Level of Care Code Est Pt Level 4 (28536) Est Pt Prev Care >65y(38855) Diagnoses Abnormal physical evaluation Z00.01 MDD (major depressive disorder) F32.9 FORREST (generalized anxiety disorder) F41.1 Breast cancer screening by mammogram Z12.31 Additional Codes FORREST-7 Assessment Billing - FORREST-7 Assessment Tool: FORREST-7 Assessment 16681 ([id number]) PHQ-9 - 93778 - PHQ-9 Billing: Yes ([id number]) Assessment & Plan Assessment & Plan (1) Abnormal physical evaluation: Code(s): Z00.01 - Encounter for general adult medical examination with abnormal findings Category: Medical Plan: Significant functional/physical limitations due to chronic bilateral knee pain and unsteady gait. She uses a wheelchair for long distances and walker for short distances. Instructed on safety and encouraged to use assistive devices for ambulation to prevent fall. Continue current treatment regimen. Follow-up in 2 months for anxiety and depression. Return sooner with symptoms or concerns. Verbalized understanding and agreed with the plan. (2) MDD (major depressive disorder): Code(s): F32.9 - Major depressive disorder, single episode, unspecified Category: Medical Plan: She notes that she is always anxious and depressed. She reports severe anxiety and depression. She thinks about but denies plan of committing suicide. She denies HI/AVH. She has chronic passive SI. PHQ-9 and FORREST-7 scores revealed moderately severe depression and severe anxiety respectively. Abilify 5 mg daily ordered to target depression. Lorazepam increased to 1 mg twice daily as needed for anxiety. Continue to take duloxetine and venlafaxine as prescribed. Routine exercise encouraged. Continue to follow-up with therapist as planned. Follow-up in 2 months or sooner with worsening or new symptoms. Verbalized understanding and agreed with the treatment plan. (3) FORREST (generalized anxiety disorder): Code(s): F41.1 - Generalized anxiety disorder Category: Medical Plan: Plan as above. (4) Breast cancer screening by mammogram: Code(s): Z12.31 - Encounter for screening mammogram for malignant neoplasm of breast Category: Medical Plan: Last mammogram was with [facility] 3 years ago: normal. Mammogram ordered. Orders: Orders TDaP Immunization 05/06/25 Z23 - Encounter for immunization MM screening mammo BI 05/06/25 Z12.31 - Encounter for screening mammogram for malignant neoplasm of breast Medications: New lorazepam 1 mg PO BID PRN 14 tabs 0RF anxiety aripiprazole (Abilify) 5 mg PO DAILY 30 tabs 3RF 30 days Discontinued lorazepam (Ativan) Discontinued Reason: Doctor's Order 0.5 mg PO BID PRN 14 tabs 0RF anxiety
--- OUTSIDE RECORDS SUMMARY | 2025-05-06 07:57 | XMS_ITS | Clinical Summary ---
Author Organization [facility] Address [address] [place] [address] Care Team Providers Care Medicare Contact Specialist Name Role Phone Zheng Saravia CALL OR CONTACT CENTRE COACH-C Primary Care Provider [phone] [phone] Source Comments PLEASE NOTE, if this patient [...] of neck of femur 12/13/2019 Overview (12/13/2019): [facility] Dexa- Sep 28 2019 This yields a T-score of -1.0 and a Z-score of -0.3 and there is therefore no evidence of osteoporosis or osteopenia here. However, the T-score of the right femoral neck is -2.1 and that of the left femoral neck is -1.5 which is diagnostic of osteopenia. IMPRESSION:1. Osteopenia. Current moderate episode of major depressive disorder without prior episode ([facility]) 01/22/2018 H/O renal calculi 12/22/2017 Overview (12/22/2017): [...] Flu, Preservative Free 07/19/2018 Hep B, Adult/Adol ([id number]/RECOMBIVAX-ADULT) 11/23/2014,10/19/2014 INFLUENZA, SEASONAL, INJECTABLE 05/18/2019,06/02 INFLUENZA, SEASONAL, INJECTA BLE, PRESERVATIVE FREE 05/19/2017,07/18/2016,07/18/2015 Influenza (FLUZONE), high-do se, trivalent, PF 05/18/2019 MMR (MMR II/Priorix) 11/23/2014(Deferred : Out of Stock),09/14/2014 [employer] COVID VACCINE, PURPLE CAP, 12+ 04/05/2021 ,03/15/2021 [...] 1999 Flexible Sigmoidoscopy 1999 Falls Prevention 2019 Breast Cancer Screening (Mammogram) 10/08/2020 10/08/2018, 01/22/2016, 01/05/2015 (Managed by Outside Provider) Lipid Screening 02/16/2022 02/16/2021, 06/03, 07/29/2018, Additional history exists Depression Monitoring 04/19/2022 01/17/2022 , 09/13/2019, 12/30/2018, Additional history exists Diabetes Screening 01/21/2023 01/21/2022, 0 01/21/2022, 02/16/2021, Additional history exists TSH Monitoring 01/21/2023 01/21/2022, 12/31, 01/21/2022, Additional history exists Hypertension Screening (#1) 03/08/2023 Alcohol and Drug Screen 09/01/2024 01/18/20 22, 06/30/2019, 11/20/2017, Additional history exists Imm-DTaP/Tdap/Td (3 - Td or Tdap) 10/19/2024 015, 09/14/2014 [id number] ( season) 2025 021, 03/15/2021 Imm-Influenza (#1) 2025 06/26/2020, 0 05/18/2019, 05/18/2019, Additional history exists Imm-Hepatitis B Discontinued 11/23/2014, 10/19/2014 Hepatitis C Screening Completed 07/29/2018 Bone Density Screening Completed 09/28/2020 Imm-Pneumococcal 50+ Completed 02/16/2021, 09/13/19 20 Imm-Zoster, Recombinant Completed 03/11/2022, 09/13 Procedures Procedure [...] (BMI) of 35.0 to 35.9 in adult ([facility]) Annual physical exam MAMMOGRAM, ABSTRACTED DISCRETE Routine 10/08/2018 8:28 AM EST HEPATITIS A,B,C PANEL Routine 07/29/2018 10:30 AM EST Need for hepatitis C screening test from Last 3 Months or Most Recently Relevant to Health Maintenance Results * (ABNORMAL) TSH W/RFLX FREE T4 (01/21/2022 3:51 PM EDT) TSH W/REFLEX TO FT4 7.79(H) 0.40 - 4.50 mIU/L [facility] Blood Blood / Unknown 01/21/2022 3 :51 PM EDT 01/21/2022 3:51 PM EDT Naima Hollis PA-C LAB - BLOOD DRAW Edited Result - Final Performing Organization Address [facility] de Phone Number [facility] [address] [address], [facility] [address],[facility] [place] [address] * BASIC METABOLIC PANEL CALCIUM TOTAL (01/21/2022 3:51 PM EDT) Pathologist [facility] GLUCOSE 87 65 - 99 mg/dL [facility] Comment: Fasting reference interval UREA NITROGEN (BUN) 18 7 - 25 mg/dL [facility] CREATININE (blood) 0.84 0.50 - 0.99 mg/dL [facility] Comment: For patients >49 years of age, the reference limit for Creatinine is approximately 13% higher for people identified as -Montserratian. GFR ESTIMATED 72 > OR = 60 mL/min/[address] [facility] EGFR 83 > OR = 60 mL/min/[address] [facility] BUN/CREATININE RATIO NOT APPLICABLE 6 - [address] [facility] SODIUM 137 135 - 146 mmol/L [facility] POTASSIUM 4.7 3.5 - 5.3 mmol/L [employer] CHLORIDE 103 98 - 110 mmol/L [facility] CARBON DIOXIDE 27 20 - 32 mmol/L [facility] CALCIUM 9.6 8.6 - 10.4 mg/dL [facility] Blood Blood / Unknown 01/21/2022 3 :51 PM EDT 01/21/2022 3:51 PM EDT us Naima Hollis PA-C LAB - BLOOD DRAW Edited Result - Final [facility] [address] [address], [facility] [address],[facility] [place] [address] * (ABNORMAL) LIPID PANEL (02/16/2021 3:20 PM EDT) CHOLESTEROL, TOTAL 146 <200 mg/dL [facility] HDL CHOLESTEROL 49(L) > OR = 50 mg/dL [facility] TRIGLYCERIDES 112 <150 mg/dL [facility] LDL-CHOLESTEROL 77 99 mg/dL (calc) [facility] Comment: Reference range: <100 Desirable range <100 mg/dL for primary prevention; <70 mg/dL for patients with CHD or diabetic patients with > or = 2 CHD risk factors. LDL-C is now calculated using the Ephraim calculation, which is a validated novel method providing better accuracy than the Friedewald equation in the estimation of LDL-C. Kenneth SS et al. KIYA. 2013;310(19): 9819-7935 (http://education.[employer]Bridge/faq/GIJ790) CHOL/HDLC RATIO 3.0 <5.0 (calc) [facility] NON-HDL CHOLESTEROL 97 <130 mg/dL (calc) [facility] Comment: For patients with diabetes plus 1 major ASCVD risk factor, treating to a non-HDL-C goal of <100 mg/dL (LDL-C of <70 mg/dL) is considered a therapeutic option. Blood Blood / Unknown 02/16/2021 3 :20 PM EDT 02/16/2021 3:20 PM EDT us Naima Hollis PA-C LAB - BLOOD DRAW Edited Result - Final [facility] [address] [address], [facility] [address],[facility] [place] [address] * MAMMOGRAM, ABSTRACTED (10/08/2018 8:28 AM EST) MAMMOGRAM NEGATIVE NEGATIVE Anatomical Region Laterality Modality Other Impressions 10/08/2018 8:28 AM EST No mammogramic evidence of malignancy BIRADS - 1 negative Repeat 1 year us Provider Rosalia ASHLEY MAMMO Final Result * (ABNORMAL) HEPATITIS A,B,C PANEL (07/29/2018 10:30 AM EST) HEPATITIS B SURFACE ANTIBODY POSITIVE(A) NEGATIVE [facility] HEPATITIS B SURFACE ANTIGEN NEGATIVE NEGATIVE [facility] Comment: Over the counter supplements containing high doses of biotin may interfere with this assay. If interference is suspected, patients shoud be retested after refraining from biotin supplements for 72 hours. HEPATITIS C VIRUS DIAGNOSTIC NEGATIVE NEGATIVE [facility] HEPATITIS A ANTIBODY TOTAL POSITIVE(A) NEGATIVE [facility] Comment: Over the counter supplements containing high doses of biotin may interfere with this assay. If interference is suspected, patients shoud be retested after refraining from biotin supplements for 72 hours. 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
[2025-05-06 08:10] VITALS: BP 132/60; PULSE 73; RESP 16; TEMP 36.3; O2SAT 97; BMI 30.3
== END 2025-05-06 08:52 | disposition home or self-care (01) ==
LOC: HO.HMCFM 07:54
PROVIDERS: PCP Nurse Practitioner Family; Visit Provider Nurse Practitioner Family
DX: Z23 Encounter for immunization (principal)

== ENCOUNTER → 2025-05-06 07:53 | Outpatient (BNVA) | payer MEDICARE, MEDICAID, SELFPAY | PROVIDERS: PCP Nurse Practitioner Family; Visit Provider Nurse Practitioner Family | DX: Z00.01 Encounter for general adult medical examination with abnormal findings (principal); F32.9 Major depressive disorder, single episode, unspecified; F41.1 Generalized anxiety disorder; Z23 Encounter for immunization | CPT/HCPCS: 90471; 90715; 96127; 99212; 99397 ==

== ENCOUNTER 2025-06-10 10:08 | Outpatient (AMB) | payer MEDICARE, MEDICAID, SELFPAY ==
--- NOTE | 2025-06-10 10:20 | A.OFFPC_ITS ---
Vital Signs 06/10/25 10:47 Height 5 ft 6 in Weight 180 lb BMI 29.0 BP 123/58 L Blood Pressure Location Rt brachial Position Sitting Respiration 16 Pulse 70 Pulse Source Pulse Oximeter Temp 98.0 F Temp Source Oral Pulse Oximetry (%) 98 Oxygen Delivery Method Room Air Intake Visit Reasons: swallowing problems Intake Note: patient here c/o swallowing problems, she had a thyroid procedure and now its hard for her to swallow her meds and food. 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: No Accompanied by: Daughter Is last menstrual period known: No Post menopausal: No Patient : No Allergies amoxicillin Allergy (Severe, Verified 06/10/25 11:08) Anaphylaxis Medication List - Last Reconciled 06/10/25 by Sera Fox CNP acetaminophen ER 650 mg PO Q8H PRN aripiprazole (Abilify) 5 mg PO DAILY 30 days atorvastatin 20 mg PO DAILY 90 days cetirizine (Zyrtec) 10 mg PO DAILY cholecalciferol (vitamin D3) 50 mcg PO DAILY 90 days cyanocobalamin (vitamin B-12) 100 mcg PO DAILY diclofenac sodium 1% (Arthritis Pain (diclofenac)) 2 grams topical BID duloxetine 30 mg PO BID 30 days famotidine 40 mg PO DAILY 30 days gabapentin 600 mg PO TID hydrocortisone 0.5% 1 appl topical BID 7 days levothyroxine 125 mcg PO DAILY 3 months lorazepam 1 mg PO BID PRN simethicone (Gas Relief (simethicone)) 125 mg PO TID PRN 90 days trazodone 200 mg (2 x 100 mg) PO BEDTIME 90 days venlafaxine ER 37.5 mg PO DAILY Tobacco use date assessed: 06/10/25 Fall risk assessment: No Falls in past year Last assessed Fall Risk: 06/10/25 Dental Screening Dental Screen Date: 06/10/25 Did you have a dental visit in the last 12 months?: Yes Did you have a dental problem in the last 6 months where you did not have access to dental care?: No Was dental information given to patient?: Patient has dentist HPI HPI Comments History of Present Illness Details 70-year-old Wolof speaking female, acco mpanied by her daughter, presents with complaints of difficulty swallowing solid foods and tablets/capsules. Her symptoms have been ongoing for the past 3 weeks. No issues with non-solid foods. No choking or aspiration. Denies sore throat. No other complaints. Her daughter notes that the patient had partial thyroidectomy 14 years ago. Interpretation by the patient's daughter per patient's preference. [facility] Medical History Depression Surgical History H/O eye surgery History of thyroidectomy Social History Household Members: Family Household Members Other:: daughter Housing: House Are you a primary managed care liaison to a significant other at home: No 75 years or older and lives alone: No Alcohol intake: never Patient Tobacco Use Status: Never used Tobacco e-Cigarette/Vaping Use: Never Used Second Hand Smoke Exposure: No Patient : No service: No Current occupational status: disabled Current occupational exposures/hazards: No Cognitive needs: Yes (cane, wheelchair) Hearing needs: No Vision needs: Yes (glasses) Questionnaire Thrive Questionnaire Date Thrive assessed: 03/28/25 I am a: Parent/Caregiver What is your living situation today?: I have a steady place to live Within the past 12 months, did the food you bought not last and you didn't have the money to get more?: Never true Within the past 12 months, did you worry whether your food would run out before you got money to buy more?: Never true Do you have trouble paying for medicines?: No Do you have trouble getting transportation to medical appointments?: No Do you have trouble paying your heating and electricity bill?: No Do you have trouble taking care of your child, family member or friend?: No Do you have trouble with day-to-day activities such as bathing, preparing meals, shopping, managing finances, etc.?: No Are you currently unemployed and looking for a job?: No Are you interested in more education?: No Please select the resources that you would like help with: None Currently or been in a relationship where the following occur: I choose not to answer THRIVE Score: 0 FORREST-7 AMB Questionnaire FORREST-7 Date FORREST - 7 assessed: 05/06/25 Source: Developed by Drs. Jhon Abreu, Jolynn Lloyd, Ludwin Moreno and colleagues, with an educational hima from [employer]. Review of Systems Const Details: Const Denies chills, Denies fatigue, Denies fever(s), Denies headache(s) and Denies weakness ENT Reports as per HPI Card Denies chest pain, Denies lightheadedness, Denies dyspnea and Denies other (Palpitations) Resp Denies cough, Denies dyspnea, Denies wheezing and Denies other ( shortness of breath) Physical exam (Primary Care) Vital Signs: Last Vital Signs Temp 98.0 F 06/10/25 10:47 Pulse 70 06/10/25 10:47 Resp 16 06/10/25 10:47 BP 123/58 L 06/10/25 10:47 Pulse Ox 98 06/10/25 10:47 Oxygen Delivery Method Room Air 06/10/25 10:47 BMI result Body Mass Index 29.0 Tobacco/Smoking Status: Tobacco use Status Tobacco use date assessed 06/10/25 06/10/25 10:52 Patient Tobacco Use Status Never used Tobacco 06/10/25 10:20 e-Cigarette/Vaping Use Never Used 06/10/25 10:20 Thrive Assessment: Date of Thrive Assessment Date Thrive assessed 03/28/25 06/10/25 10:20 Currently or been in a relationship where the following occur: I choose not to answer Const Other: General: no acute distress and well developed Nutritional Appearance: well nourished Orientation/consciousness: patient oriented x3 HENMT Normal exam. No thyroid enlargement or nodule. Normal swallowing. No lymphadenopathy Eyes General: appearance normal, both eyes and all related structures Pupils: Equal, round and reactive pupils present EOM: EOMs intact bilaterally Resp Effort & Inspection: normal respiratory effort Auscultation: clear to auscultation bilaterally Cardio Rate: regular rate Rhythm: regular rhythm Heart sounds: S1 normal heart sound present, S2 normal heart sound present, no gallops, no murmurs and no rubs Coding Level of Care Code Est Pt Level 4 (35433) Diagnoses Dysphagia R13.10 Assessment & Plan Assessment & Plan (1) Dysphagia: Code(s): R13.10 - Dysphagia, unspecified Category: Medical Plan: 70-year-old Wolof speaking female, accompanied by her daughter, presents with complaints of difficulty swallowing solid foods and tablets/capsules. Her symptoms have been ongoing for the past 3 weeks. No issues with non-solid foods. Denies sore throat. No other complaints. Normal exam. No thyroid enlargement or nodule. Normal swallowing. Modified barium swallow ordered. Will review results and make changes as needed. Follow-up with worsening or new symptoms. Verbalized understanding and agreed with the plan. Orders: Orders FL Modified Barium Swallow 06/10/25 R13.10 - Dysphagia, unspecified
[2025-06-10 10:47] VITALS: BP 123/58; PULSE 70; RESP 16; TEMP 36.7; O2SAT 98; BMI 29.0
== END 2025-06-10 11:18 | disposition home or self-care (01) ==
LOC: HO.HMCFM 10:09
PROVIDERS: PCP Nurse Practitioner Family; Visit Provider Nurse Practitioner Family
DX: R13.10 Dysphagia, unspecified (principal)

== ENCOUNTER → 2025-06-10 10:08 | Outpatient (BNVA) | payer MEDICARE, MEDICAID, SELFPAY | PROVIDERS: Visit Provider Nurse Practitioner Family | DX: R13.10 Dysphagia, unspecified (principal) | CPT/HCPCS: 99212 ==

== ENCOUNTER 2025-06-20 12:51 | Outpatient (REF) | payer MEDICARE, MEDICAID, SELFPAY | END 2025-06-20 12:52 | disposition home or self-care (01) | LOC: HO.MAMMO 12:51 | PROVIDERS: PCP Nurse Practitioner Family; Visit Provider Nurse Practitioner Family | DX: Z12.31 Encounter for screening mammogram for malignant neoplasm of breast (principal) | CPT/HCPCS: 77063; 77067 ==

== ENCOUNTER → 2025-06-20 13:30 | Outpatient (BNV) | payer MEDICARE, MEDICAID, SELFPAY | PROVIDERS: PCP Nurse Practitioner Family; Visit Provider Internal Medicine | DX: Z12.31 Encounter for screening mammogram for malignant neoplasm of breast (principal) | CPT/HCPCS: 77063; 77067 ==

== ENCOUNTER 2025-06-28 14:02 | Outpatient (REF) | payer MEDICARE, MEDICAID, SELFPAY ==
--- NOTE | ~2025-06-28 | FL_ITS ---
EXAMINATION: XR BARIUM SWALLOW CLINICAL INFORMATION: Dysphagia COMPARISON: None available. TECHNIQUE: Barium swallow performed by speech pathologist FINDINGS: There is swallow performed by speech pathologist. Patient swallowed liquid and solids under fluoroscopic monitoring. Laryngeal penetration is seen. There is impression of the posterior aspect of the cervical esophagus, raising concern for a cricopharyngeal bar. Patient swallowed a barium tablet, with normal passage through the cervical esophagus. FLUOROSCOPY TIME: 33 seconds DOSE AREA PRODUCT: 316 uGy-m2 (microgray-meter squared) FL/FL Modified Barium Swallow IMPRESSION: Impression along the posterior aspect of the cervical esophagus, raises the possibility of a cricopharyngeal bar. See speech pathology report for details. Electronically signed by: Angel Calix MD 06/28/2025 04:53 PM EDT
--- NOTE | 2025-06-28 16:05 | MHC.SL.IMP ---
Date of Plan of Treatment: 06/28/25 Onset of Symptoms/Illness: 04/28/25 Date Treatment Started: 06/28/25 Admitting Diagnosis: Hx partial thyroidectomy Primary Speech & Language Diagnosis: R13.10 Dysphagia Reason for Today's Visit: 51080 Modified Barium Swallow Study Pre-evaluation Dietary Consistencies: Regular Pre-evaluation Liquid Consistency: Thin Pre-evaluation Medication Administration: Whole with Liquid Medical History: Modified Barium Swallow Study Fluoroscopic Evaluation of Swallowing Function CPT Code 16262 Evaluation Year: 2024 Reason for Study: Patient reporting difficulty swallowing. Referring Physician: Sera Fox CNP Evaluating Clinician: Zuleyma Cuenca MA, CCC-LEASE ADMINISTRATION ANALYST Study Number: 1 Patient Name: Boom Salgado Status: Outpatient, Ambulatory Age: 70 Sex: Female Medical History Medical History Depression Surgical History H/O eye surgery History of thyroidectomy Current (pre-evaluation) Intake/Diet: Route: PO Diet Grade: Regular Liquid Consistencies: Thin Pre-Study Functional Oral Intake Scale (FOIS): 7- Total oral intake with no restrictions Pain: None reported at time of study SUBJECTIVE: Patient is a 70 year old female with history of partial thyroidectomy 14 years ago, who is now referred for a modified barium swallow study due to complaints of swallow difficulty. She was recently seen by her primary care provider, Sera Fox CNP, and reported it was difficult for her to swallow her medications and solid food. Patient was accompanied to this evaluation by her daughter, who assisted in interpretation per patient?s preference. Patient reports having trouble swallowing for the past two months. If she does not cut up her food finely, she can feel it get stuck in her throat. She feels this sensation when swallowing pills as well, and it is effortful for her to swallow and get them down. Patient denies having choking episodes or odynophagia. She says she is able to swallow liquids without issue. Oral Motor Exam Facial Symmetry: Symmetrical Mouth Occlusion: Normal Oral-Facial Teeth Characteristics: Intact/Normal Dentures Oral-Facial Lip Pucker Description: Normal Oral-Facial Smile (Lips) Description: Normal Oral-Facial Puff Cheeks Description: Normal Tongue Size: Normal Tongue Excursion Description: Normal Tongue Range of Movement Description: Normal Tongue Speed of Movement Description: Normal Tongue Strength of Movement (against opposing pressure): Normal Tongue Movement Characteristics: Normal/Absent Is patient able to manage secretions?: Yes Is patient able to produce volitional cough?: Yes Food and Liquid Trials: Oral Impairment: Lip Closure: Did not test Oral Impairment: Tongue Control During Bolus Hold: Did not test Oral Impairment: Bolus Preparation/Mastication: 0=Timely and efficient chewing and mashing Oral Impairment: Bolus Transport/Lingual Motion: 0=Brisk tongue motion Oral Impairment: Oral Residue: 1=Trace residue lining oral structures Oral Impairment:Initiation of Pharyngeal Swallow: 2=Bolus head at posterior laryngeal surface of epiglottis Pharyngeal Impairment: Soft Palate Elevation: 0=No bolus between soft palate (SP)/pharyngeal wall (PW) Pharyngeal Impairment: Laryngeal Elevation: 1=Partial thyroid cartilage/arytenoids to epiglottic petiole movement Pharyngeal Impairment: Anterior Hyoid Excursion: 1=Partial anterior movement Pharyngeal Impairment: Epiglottic Movement: 1=Partial inversion Pharyngeal Impairment: Laryngeal Vestibular Closure:: 1=Incomplete: narrow column air/contrast in laryngeal vestibule Pharyngeal Impairment: Pharyngeal Stripping Wave: 0=Present: complete Pharyngeal Impairment: Pharyngeal Contraction: Did not test Pharyngeal Impairment: Pharyngoesophageal Segment Openin=Partial distention/partial duration: partial obstruction of flow Pharyngeal Impairment: Tongue Base (TB) Retraction: 1=Trace column of contrast/air between TB and posterior PW Pharyngeal Impairment: Pharyngeal Residue: 1=Trace residue within or on pharyngeal structures Pharyngeal Impairment: Esophageal Clearance Upright Position: Did not test Impressions and Recommendations OBJECTIVE: Time-out: performed at 14:45 Evaluation Start: 14:30; Stop: 14:35 Patient Positioning: Standing Viewing Planes: LATERAL ONLY Contrast: MBSImP? Standardized Protocol using commercially prepared, standardized Barium viscosities, including: Varibar? THIN LIQUID (40% w/v, <15 cps) , Varibar? PUDDING (40% w/v, <5188-5025 cps) , 1/2 Shortbread Cookie (1 x1 x.25 ) MBSImP ID: [id number] MBSImP Results: Lip closure for intraoral bolus containment could not be assessed due to logistical reasons not related to physiologic impairment. Tongue control during bolus hold could not be assessed due to logistical reasons not related to physiologic impairment. Bolus preparation and mastication resulted in timely and efficient chewing and mashing. Bolus transport/lingual motion was with brisk tongue motion. Oral residue was a trace, lining oral structures. Initiation of the pharyngeal swallow occurred as the bolus head was at the posterior laryngeal surface of the epiglottis. Soft palate elevation resulted in no bolus between the soft palate and the pharyngeal wall. Laryngeal elevation was decreased, with partial superior movement of the thyroid cartilage/partial approximation of the arytenoids to the epiglottic petiole. Anterior hyoid excursion demonstrated partial anterior movement. Epiglottic movement resulted in partial inversion. Laryngeal vestibular closure was incomplete, with a narrow column of air/contrast noted within the laryngeal vestibule at the height of the swallow. Pharyngeal stripping wave was present and complete. Pharyngeal contraction could not be determined due to logistical reasons not related to physiologic impairment. Pharyngoesophageal segment opening demonstrated partial distension/partial duration, with partial obstruction of bolus flow. Tongue base retraction allowed a trace column of contrast or air between the retracted tongue base and the posterior pharyngeal wall. Pharyngeal residue was a trace within or on pharyngeal structures. Esophageal clearance in the upright position could not be assessed due to logistical reasons not related to physiologic impairment. Oral Impairment Score: 2 (absence of score, component 1component 2) Pharyngeal Impairment Score: 5 (absence of score, component 13) Esophageal Impairment Score: --- (absence of score, component 17) Laryngeal Penetration and Aspiration: Neither penetration nor aspiration was observed in today's study with Cookie, Pudding-thick. Penetration was observed in today's study. Thin Contrast entered the airway, remained above the vocal folds, and was ejected from the airway. Structural Abnormalities Noted: Cricopharyngeal Hypertrophy/Bar ASSESSMENT: This exam was performed by the radiologist and the speech pathologist. Patient was standing for lateral view and fed herself independently. She trialed the following consistencies: -Thin liquid (via individual cup sips and rapid cup sips) -Puree (mixture applesauce with barium pudding) -Regular (shortbread cookies coated with barium pudding) Mastication was timely and efficient. Timely bolus transport with brisk posterior lingual movement. Pharyngeal swallow trigger was delayed, initiated as the bolus head reached the posterior laryngeal surface of the epiglottis. Post-swallow, there was just trace residue lining the tongue. No evidence of nasopharyngeal reflux. Partial laryngeal elevation with partial epiglottic inversion and incomplete laryngeal vestibular closure. There was flash penetration seen with sips of thin liquid. A trace amount of contrast momentarily entered the airway above the vocal folds and spontaneously cleared. No evidence of aspiration during this exam. Trace residue in the valleculae and on the posterior pharyngeal wall cleared on subsequent swallows. Note cricopharyngeal bar. Patient swallowed whole barium tablet with sips of water, no hang up or obstruction of flow as tablet passed through the oral cavity and the pharynx. Liquid Intake Recommendation: Thin Liquid Intake Strategies: Dietary Recommendations: Regular Medication Administration: Whole with Liquid Please contact the pharmacy regarding appropriate crushable or liquid drug formulations that are available whenever modified delivery is recommended. Compensatory Strategies Recommended: Sitting Upright (90 deg), Small Bites and Sips, Alternate Liquids/Solids, Rate of Ingestion Change Recommendation for Speech Therapy: NA:Typical Evaluation Text Comment: Intake Recommendations: Route: PO Diet Grade: Regular Liquid Consistencies: Thin Post-Study Functional Oral Intake Scale (FOIS): 7- Total oral intake with no restrictions Flash penetration on trials of thin liquid, with no subsequent aspiration. Overall good oral and pharyngeal clearance. Note cricopharyngeal bar. Suggested Referrals: The patient might benefit from a referral to: Gastroenterology Indication for Referral: CP bar, with patient c/o sensation of solids and pills ?getting stuck? Therapy Recommendations: Diet modification and speech therapy are not indicated at this time. Recommend patient continue on unmodified diet textures REGULAR solids and THIN liquids. Patient may benefit from GI referral, and potentially EGD to further investigate, MBSS showing CP bar. Clinician - Supplemental, Miscellaneous Communication: It is important to note MBSS objective studies are snapshots in time and Patient function might vary with factors such as time of day or concomitant medical conditions. For this reason, the final treatment plan for this patient should rest with their medical care team. Additional recommendations should be considered with the totality of the Patient in mind. Thank for the opportunity to participate in the care of this patient. If you have any questions about the content of this report, please contact the [facility] at [facility]. Education: Education regarding findings from today's study and plans for therapy were provided to Patient and family/caregiver through Verbal Instruction. Understanding was expressed by the Patient and family/caregiver. Marketing Writer Clinician/Clinical Fellow: No Supervisory Statement: N/A Speech Language Pathologist: Zuleyma Cuenca M.A., [facility]-LEASE ADMINISTRATION ANALYST
--- OUTSIDE RECORDS SUMMARY | 2025-06-28 18:26 | XMS_ITS | Clinical Summary ---
Author Organization [facility] Address [address] [place] [address] Care Team Providers Care Language Tutor Name Role Phone Zheng Saravia BRAIDED [employer]UG MAKER-C Primary Care Provider [phone] Source Comments PLEASE NOTE, if this patient [...] of neck of femur 12/13/2019 Overview (12/13/2019): [facility] Dexa- Sep 28 2019 This yields a T-score of -1.0 and a Z-score of -0.3 and there is therefore no evidence of osteoporosis or osteopenia here. However, the T-score of the right femoral neck is -2.1 and that of the left femoral neck is -1.5 which is diagnostic of osteopenia. IMPRESSION:1. Osteopenia. Current moderate episode of major depressive disorder without prior episode ([facility]) 01/22/2018 H/O renal calculi 12/22/2017 [...] Flu, Preservative Free 07/19/2018 Hep B, Adult/Adol (NMGNJIR-B-LOQMS/RECOMBIVAX-ADULT) 11/23/2014,10/19/2014 INFLUENZA, SEASONAL, INJECTABLE 05/18/2019,06/02 INFLUENZA, SEASONAL, INJECTA BLE, PRESERVATIVE FREE 05/19/2017,07/18/2016,07/18/2015 Influenza (FLUZONE), high-do se, trivalent, PF 05/18/2019 MMR (MMR II/Priorix) 11/23/2014(Deferred : Out of Stock),09/14/2014 [facility] COVID VACCINE, PURPLE CAP, 12+ 04/05/2021 ,03/15/2021 [...] - Td or Tdap) 10/19/2024 015, 09/14/2014 [id number] ( season) 2025 021, 03/15/2021 Imm-Influenza (#1) [...] of 35.0 to 35.9 in adult ([facility]) Annual physical exam MAMMOGRAM, ABSTRACTED DISCRETE Routine 10/08/2018 8:28 AM EST HEPATITIS A,B,C PANEL Routine 07/29/2018 10:30 AM EST Need for hepatitis C screening test from Last 3 Months or Most Recently Relevant to Health Maintenance Results * (ABNORMAL) TSH W/RFLX FREE T4 (01/21/2022 3:51 PM EDT) TSH W/REFLEX TO FT4 7.79(H) 0.40 - 4.50 mIU/L [email or web address] Blood Blood / Unknown 01/21/2022 3 :51 PM EDT 01/21/2022 3:51 PM EDT Naima Hollis PA-C LAB - BLOOD DRAW Edited Result - Final Performing Organization Address [facility] de Phone Number [facility] [address] [address], [email or web address] [address],[facility] [place] [address] * BASIC METABOLIC PANEL CALCIUM TOTAL (01/21/2022 3:51 PM EDT) Pathologist [facility] GLUCOSE 87 65 - 99 mg/dL [email or web address] Comment: Fasting reference interval UREA NITROGEN (BUN) 18 7 - 25 mg/dL [email or web address] CREATININE (blood) 0.84 0.50 - 0.99 mg/dL [email or web address] Comment: For patients >49 years of age, the reference limit for Creatinine is approximately 13% higher for people identified as -English. GFR ESTIMATED 72 > OR = 60 mL/min/1 .73m2 [email or web address] EGFR 83 > OR = 60 mL/min/1 .73m2 [email or web address] BUN/CREATININE RATIO NOT APPLICABLE 6 - 22 [email or web address] SODIUM 137 135 - 146 mmol/L [email or web address] POTASSIUM 4.7 3.5 - 5.3 mmol/L [employer] CHLORIDE 103 98 - 110 mmol/L [email or web address] CARBON DIOXIDE 27 20 - 32 mmol/L [email or web address] CALCIUM 9.6 8.6 - 10.4 mg/dL [email or web address] Blood Blood / Unknown 01/21/2022 3 :51 PM EDT 01/21/2022 3:51 PM EDT us Naima Hollis PA-C LAB - BLOOD DRAW Edited Result - Final [facility] [address] [address], [facility] [address],[facility] [place] [address] * (ABNORMAL) LIPID PANEL (02/16/2021 3:20 PM EDT) CHOLESTEROL, TOTAL 146 <200 mg/dL [facility] HDL CHOLESTEROL 49(L) > OR = 50 mg/dL [facility] TRIGLYCERIDES 112 <150 mg/dL [facility] LDL-CHOLESTEROL 77 99 mg/dL (calc) [facility] Comment: Reference range: <100 Desirable range <100 mg/dL for primary prevention; <70 mg/dL for patients with CHD or diabetic patients with > or = 2 CHD risk factors. LDL-C is now calculated using the Ephraim calculation, which is a validated novel method providing better accuracy than the Friedewald equation in the estimation of LDL-C. Kenneth SS et al. KIYA. 2013;310(19): 3358-4005 (http://education.170 Systems/faq/RRZ738) CHOL/HDLC RATIO 3.0 <5.0 (calc) [email or web address] NON-HDL CHOLESTEROL 97 <130 mg/dL (calc) [email or web address] Comment: For patients with diabetes plus 1 major ASCVD risk factor, treating to a non-HDL-C goal of <100 mg/dL (LDL-C of <70 mg/dL) is considered a therapeutic option. Blood Blood / Unknown 02/16/2021 3 :20 PM EDT 02/16/2021 3:20 PM EDT us Naima Hollis PA-C LAB - BLOOD DRAW Edited Result - Final [facility] [address] [address], [facility] [address],[facility] [place] [address] * MAMMOGRAM, ABSTRACTED (10/08/2018 8:28 AM EST) MAMMOGRAM NEGATIVE NEGATIVE Anatomical Region Laterality Modality Other Impressions 10/08/2018 8:28 AM EST No mammogramic evidence of malignancy BIRADS - 1 negative Repeat 1 year us Provider Rosalia ASHLEY MAMMO Final Result * (ABNORMAL) HEPATITIS A,B,C PANEL (07/29/2018 10:30 AM EST) HEPATITIS B SURFACE ANTIBODY POSITIVE(A) NEGATIVE [facility] HEPATITIS B SURFACE ANTIGEN NEGATIVE NEGATIVE [facility] Comment: Over the counter supplements containing high doses of biotin may interfere with this assay. If interference is suspected, patients shoud be retested after refraining from biotin supplements for 72 hours. HEPATITIS C VIRUS DIAGNOSTIC NEGATIVE NEGATIVE [facility] HEPATITIS A ANTIBODY TOTAL POSITIVE(A) NEGATIVE [facility] Comment: Over the counter supplements containing high doses of biotin may interfere with this assay. If interference is suspected, patients shoud be retested after refraining from biotin supplements for 72 hours. HEPATITIS B CORE ANTIBODY NEGATIVE NEGATIVE [facility] Blood specimen (specimen) Blood / Unknown 07/29/2018 10:30 AM EST 07/29/2018 10:39 AM EST Narrative [facility] - 07/29/2018 1:34 PM EST [employer], [place] [address] [employer] Sorter - Annie Simental MD PT ID [id number] ORD# [id number] Lisa Montgomery PA-C LAB - BLOOD DRAW Matheus R esult - Final [address] [address], from Last 3 Months or Most Recently Relevant to Health Maintenance Insurance [place] Care Teams Language Tutor Relationship Specialty Start Date End Date Zheng Saravia FNP-C [facility] [place] [address] PCP - General Internal Medicine 09/05/22
== END 2025-06-28 14:03 | disposition home or self-care (01) ==
LOC: HO.XRAY 14:02
PROVIDERS: Visit Provider Nurse Practitioner Family
DX: R13.10 Dysphagia, unspecified (principal)
CPT/HCPCS: 74230; 92611

== ENCOUNTER → 2025-06-28 14:30 | Outpatient (BNV) | payer MEDICARE, MEDICAID, SELFPAY | PROVIDERS: Visit Provider Radiology Diagnostic Ultrasound | DX: R13.10 Dysphagia, unspecified (principal) | CPT/HCPCS: 74230 ==